=== PATIENT | female | born 1975 | race African-American/Black ===

== ENCOUNTER 2018-10-01 07:19 | Day surgery (SDC) | payer OTHER ==
--- NOTE | 2018-09-30 11:15 | RAD REPORT ---
EXAM DESCRIPTION: RAD - Chest Pa And Lat (2 Views) - 09/30/2018 11:07 am CLINICAL HISTORY: preop Chest pain. COMPARISON: No comparisons FINDINGS: The lungs are clear. The heart is mildly prominent size with sternotomy wires present. Tra ce right pleural fluid. Lateral view is degraded by the presence of the pacer pack. IMPRESSION: No acute or concerning finding suspected.
[2018-09-30 11:19] LABS: Absolute Lymphocytes (CBC) 2.2 K/uL (0.7-4.9); Basophils % 1.5 % (0-1.3); Hematocrit 39.9 % (36.0-45.0); Lymphocytes % 31.5 % (15.3-44.8); MPV 9.4 fL (7.6-11.3); RBC Red Blood Cell Count 4.46 M/uL (3.86-4.86)
[2018-09-30 11:26] LABS: Potassium 4.1 mmol/L (3.5-5.1)
--- NOTE | 2018-09-30 13:48 | EKG ---
Test Date: 2018-09-30 Test Time: 10:42:31 Ink Grinder: YRIS MEASUREMENT RESULTS: Intervals: Rate: 73 DC: 174 QRSD: 84 QT: 416 QTc: 458 Martin: P: 60 DC: 174 QRS: 6 T: 115 INTERPRETIVE STATEMENTS: Normal sinus rhythm Cannot rule out Anterior infarct, age undetermined T wave abnormality, consider lateral ischemia Abnormal ECG No previous ECG available for comparison Electronically Signed On 09-30-18 13:47:11 CDT by Arden Henry
--- OUTSIDE RECORDS SUMMARY | 2018-10-01 07:22 | XMS REPORT | Clinical Summary ---
:1975 Author Organization [facility] Address [address] [place] [address] Care Team Providers Name Role Phone Juju Cardozo MD Primary Care Provider Jose E Martinez Unavailable Allergies No Known Allergies Medications Medication Sig Dispensed Refills Start Date End Date Status insulin pump cartridge Inject 0 Active Crtg subcutaneously. cholecalciferol, Take 50,000 Units 0 Active vitamin D3, 50,000 by mouth once a unit TabIndications: week. vitamin D deficiency insulin aspart 1.7 Units every 0 06/05/2016 Active (NOVOLOG) 100 unit/mL hour Per insulin injection pump. Active Problems Problem Noted Date Smoker 08/04/2016 Hyperlipidemia 08/04/2016 Type 1 diabetes mellitus, uncontrolled 07/26/2016 Ischemic cardiomyopathy 07/26/2016 Chronic combined systolic and diastolic congestive heart failure 07/23/2016 NSTEMI (non-ST elevated myocardial infarction) 07/19/2016 Unspecified vitamin D deficiency 03/31/2016 Social History Tobacco Use Types Packs/Day Years Used Date Former Smoker Cigarettes Quit: 07/03/2016 Smokeless Tobacco: Never Used Alcohol Use Drinks/Week oz/Week Comments Yes occassionally Sex Assigned at Date Recorded Not on file Job Start Date Occupation Industry Not on file Not on file Not on file Travel History Travel Start Travel End No recent travel history available. Last Filed Vital Signs Not on file Plan of Treatment Not on file Implants Implanted Type Area International [employer] Coordinator Device Shelf Model / Identifier Expiration Serial / Date Lot Sternal Zipfix Ndl Strl [id number] - [id number] Cardiovascular N/A: SYNTHES:SYNTHES 05/09/2021 [id number] / Implanted: Qty: 1 on 07/23/2016 by Han Flores [facility] / [id number] Sternal Zipfix Ndl Strl .[id number] - [id number] Cardiovascular N/A: Chest SYNTHES:SYNTHES 05/09/2021501.001.20S / Implanted: Qty: 1 on 07/23/2016 by Han Flores MD [facility] / [id number] Procedures Procedure Name Priority Date/Time Associated Diagnosis Comments REPORT OF PROCEDURE - 10/13/2017 3:22 PM CDT ENDOSCOPY SCAN after 09/30/2017 Results EKG-SCANNED (10/13/2017 3:22 PM CDT) Narrative Performed At after 09/30/2017 Insurance Payer Benefit Plan / Group Subscriber ID Type Phone Address [employer] - [employer] CARE C[employer] HMO/POS/OPEN ACCESS xxxxxxxxxxx HMO/POS Advance Directives For more information, please contact:[address] [phone] Code Status Date Activated Date Inactivated Comments Full Code 07/23/2016 4:55 PM 08/01/2016 1:25 AM This code status was determined by: Patient Full Code 07/22/2016 7:16 PM 07/23/2016 4:55 PM This code status was determined by: Patient Full Code 07/18/2016 11:39 PM 07/22/2016 7:16 PM This code status was determined by: Patient Full Code 07/17/2016 1:22 PM 07/18/2016 11:39 PM This code status was determined by: Patient Full Code 10/04/2014 5:41 PM 10/10/2014 9:42 PM This code status was determined by: Patient
--- OUTSIDE RECORDS SUMMARY | 2018-10-01 07:26 | XMS REPORT ---
:1975 [facility] Address [address] [place] [address] Care Team Providers Name Role Phone EM JASMYNE TRAVIS Unavailable Unavailable ANDIE FLAHERTY Unavailable Unavailable ZACHARIAH DEY Unavailable Unavailable JA RIVAS Unavailable Unavailable Problems This patient has no known problems. Allergies, Adverse Reactions, Alerts This patient has no known allergies or adverse reactions. Medications This patient has no known medications. Results Test Description Test Time Test Comments Text Results Atomic Results Result Comments WOUND CULTURE + GRAM STAIN 2016-08-21 10:38:00 Test Item Value Reference Range Comments CULTURE (BEAKER) (test lkzw=8825) SERRATIA MARCESCENS 4+ Serratia marcescens Amikacin (test code=1) Ampicillin + Sulbactam (test code=6) Aztreonam (test code=32) Cefazolin (test code=9) Cefepime (test code=51) Cefoxitin (test code=68) Ceftazidime (test code=27) Ceftriaxone (test code=52) Ertapenem (test code=38) Gentamicin (test code=18) Levofloxacin (test code=22) Meropenem (test code=34) Nitrofurantoin (test code=23) Piperacillin + Tazobactam (test code=29) Tetracycline (test code=2) Tigecycline (test pati=858) Tobramycin (test code=25) Trimethoprim + Sulfamethoxazole (test code=47) GRAM STAIN RESULT (BEAKER) (test <1+ WBCs toqr=3914) GRAM STAIN RESULT (BEAKER) (test No organisms seen xmel=[id number]) 1+ skin floraB-TYPE NATRIURETIC FACTOR (BNP)2016-08-04 12:56:00 Test Item Value Reference Range Comments B-TYPE NATRIURETIC PEPTIDE (BEAKER) (test 1128 pg/mL 0-100 cyzm=547) [id number] 12:49:00 Test Item Value Reference Range Comments MAGNESIUM (BEAKER) (test mvlc=968) 1.6 mg/dL 1.6-2.6 BASIC METABOLIC [id number] 12:49:00 Test Item Value Reference Range Comments SODIUM (BEAKER) (test 138 meq/L 136-145 mnkm=349) POTASSIUM (BEAKER) (test 3.7 meq/L 3.5-5.1 hrlh=559) CHLORIDE (BEAKER) (test 100 meq/L 98-107 prsu=201) CO2 (BEAKER) (test 26 meq/L 22-29 tfgc=750) BLOOD UREA NITROGEN 18 mg/dL 7-21 (BEAKER) (test ksgl=133) CREATININE (BEAKER) (test 0.99 mg/dL 0.57-1.25 gmii=917) GLUCOSE RANDOM (BEAKER) 65 mg/dL 70-105 (test bayw=293) CALCIUM (BEAKER) (test 10.4 mg/dL 8.4-10.2 wypi=768) EGFR (BEAKER) (test 75 mL/min/1.73 sq m ESTIMATED GFR IS NOT lvvu=9066) ACCURATE CREATININE CLEARANCE IN PREDICTING GLOMERULAR FILTRATION RATE. ESTIMATED GFR IS NOT APPLICABLE FOR DIALYSIS PATIENTS. POCT-GLUCOSE [id number] 12:35:00 Test Item Value Reference Range Comments POC-GLUCOSE METER (BEAKER) 226 mg/dL 70-110 TESTED AT [place] [id number] [facility] (test khrx=6485) [facility] [address] POCT-GLUCOSE [id number] 08:12:00 Test Item Value Reference Range Comments POC-GLUCOSE METER (BEAKER) 180 mg/dL 70-110 TESTED AT [facility] [address] [facility] (test plbm=7569) [facility] [address] CBC W/PLT COUNT & AUTO [id number] 06:58:00 Test Item Value Reference Range Comments WHITE BLOOD CELL COUNT (BEAKER) (test sozp=266) 13.6 K/ L 4.0-10.0 RED BLOOD CELL COUNT (BEAKER) (test vmnk=785) 2.86 M/ L 4.00-5.00 HEMOGLOBIN (BEAKER) (test yqdf=259) 8.4 GM/DL 12.0-15.0 HEMATOCRIT (BEAKER) (test jlgr=606) 25.6 % 36.0-45.0 MEAN CORPUSCULAR VOLUME (BEAKER) (test ados=716) 89.6 fL 82.0-99.0 MEAN CORPUSCULAR HEMOGLOBIN (BEAKER) (test 29.3 pg 27.0-33.0 jnbs=731) MEAN CORPUSCULAR HEMOGLOBIN CONC (BEAKER) (test 32.7 GM/DL 32.0-36.0 zrqv=696) RED CELL DISTRIBUTION WIDTH (BEAKER) (test 14.4 % 10.3-14.2 ngxp=870) PLATELET COUNT (BEAKER) (test obzs=546) 336 K/CU MM 150-430 MEAN PLATELET VOLUME (BEAKER) (test lgqp=765) 7.1 fL 6.5-10.5 NUCLEATED RED BLOOD CELLS (BEAKER) (test 0 /100 WBC 0-0 awqu=568) NEUTROPHILS RELATIVE PERCENT (BEAKER) (test 70 % xjti=929) LYMPHOCYTES RELATIVE PERCENT (BEAKER) (test 17 % hkhq=487) MONOCYTES RELATIVE PERCENT (BEAKER) (test 9 % slzv=478) EOSINOPHILS RELATIVE PERCENT (BEAKER) (test 3 % wubp=017) BASOPHILS RELATIVE PERCENT (BEAKER) (test 1 % pisf=225) NEUTROPHILS ABSOLUTE COUNT (BEAKER) (test 9.51 K/ L 1.80-8.00 cnhi=982) LYMPHOCYTES ABSOLUTE COUNT (BEAKER) (test 2.33 K/ L 1.48-4.50 jvns=105) MONOCYTES ABSOLUTE COUNT (BEAKER) (test 1.21 K/ L 0.00-1.30 xdpr=459) EOSINOPHILS ABSOLUTE COUNT (BEAKER) (test 0.39 K/ L 0.00-0.50 nhmh=404) BASOPHILS ABSOLUTE COUNT (BEAKER) (test 0.11 K/ L 0.00-0.20 covs=283) [id number] 06:11:00 Test Item Value Reference Range Comments MAGNESIUM (BEAKER) (test yvkj=237) 1.7 mg/dL 1.6-2.6 BASIC METABOLIC [id number] 06:11:00 Test Item Value Reference Range Comments SODIUM (BEAKER) (test 135 meq/L 136-145 leel=400) POTASSIUM (BEAKER) (test 4.3 meq/L 3.5-5.1 jglw=321) CHLORIDE (BEAKER) (test 100 meq/L 98-107 uvuh=912) CO2 (BEAKER) (test 26 meq/L 22-29 euoe=384) BLOOD UREA NITROGEN 21 mg/dL 7-21 (BEAKER) (test adao=605) CREATININE (BEAKER) (test 1.05 mg/dL 0.57-1.25 pwoe=218) GLUCOSE RANDOM (BEAKER) 133 mg/dL 70-105 (test dabc=490) CALCIUM (BEAKER) (test 8.8 mg/dL 8.4-10.2 gvgr=118) EGFR (BEAKER) (test 70 mL/min/1.73 sq m ESTIMATED GFR IS NOT xauh=2640) ACCURATE CREATININE CLEARANCE IN PREDICTING GLOMERULAR FILTRATION RATE. ESTIMATED GFR IS NOT APPLICABLE FOR DIALYSIS PATIENTS. POCT-GLUCOSE [id number] 21:04:00 Test Item Value Reference Range Comments POC-GLUCOSE METER (BEAKER) 127 mg/dL 70-110 TESTED AT [address] (test ugvc=0218) [facility] [address] POCT-GLUCOSE [id number] 17:44:00 Test Item Value Reference Range Comments POC-GLUCOSE METER (BEAKER) 186 mg/dL 70-110 TESTED AT [address] (test mijt=6940) [facility] [address] CBC W/PLT COUNT & AUTO [id number] 14:09:00 Test Item Value Reference Range Comments WHITE BLOOD CELL COUNT (BEAKER) (test xqxz=572) 13.0 K/ L 4.0-10.0 RED BLOOD CELL COUNT (BEAKER) (test nhch=834) 2.84 M/ L 4.00-5.00 HEMOGLOBIN (BEAKER) (test jzrp=755) 8.6 GM/DL 12.0-15.0 HEMATOCRIT (BEAKER) (test tczh=541) 25.2 % 36.0-45.0 MEAN CORPUSCULAR VOLUME (BEAKER) (test pici=642) 88.7 fL 82.0-99.0 MEAN CORPUSCULAR HEMOGLOBIN (BEAKER) (test 30.4 pg 27.0-33.0 vsac=768) MEAN CORPUSCULAR HEMOGLOBIN CONC (BEAKER) (test 34.2 GM/DL 32.0-36.0 zpry=015) RED CELL DISTRIBUTION WIDTH (BEAKER) (test 14.3 % 10.3-14.2 iufa=275) PLATELET COUNT (BEAKER) (test clol=277) 318 K/CU MM 150-430 MEAN PLATELET VOLUME (BEAKER) (test bnio=452) 7.0 fL 6.5-10.5 NUCLEATED RED BLOOD CELLS (BEAKER) (test 0 /100 WBC 0-0 edhb=044) NEUTROPHILS RELATIVE PERCENT (BEAKER) (test 67 % ffkw=955) LYMPHOCYTES RELATIVE PERCENT (BEAKER) (test 20 % gvqw=782) MONOCYTES RELATIVE PERCENT (BEAKER) (test 8 % gybf=415) EOSINOPHILS RELATIVE PERCENT (BEAKER) (test 3 % fugg=725) BASOPHILS RELATIVE PERCENT (BEAKER) (test 1 % rdra=246) NEUTROPHILS ABSOLUTE COUNT (BEAKER) (test 8.73 K/ L 1.80-8.00 wblz=530) LYMPHOCYTES ABSOLUTE COUNT (BEAKER) (test 2.60 K/ L 1.48-4.50 dhou=553) MONOCYTES ABSOLUTE COUNT (BEAKER) (test 1.09 K/ L 0.00-1.30 leqt=362) EOSINOPHILS ABSOLUTE COUNT (BEAKER) (test 0.44 K/ L 0.00-0.50 irxt=979) BASOPHILS ABSOLUTE COUNT (BEAKER) (test 0.11 K/ L 0.00-0.20 boiw=481) 0.00POCT-GLUCOSE [id number] 08:16:00 Test Item Value Reference Range Comments POC-GLUCOSE METER (BEAKER) 123 mg/dL 70-110 TESTED AT [facility] [address] [facility] (test wuee=0474) [facility] [address] CBC W/PLT COUNT & AUTO [id number] 06:57:00 Test Item Value Reference Range Comments WHITE BLOOD CELL COUNT (BEAKER) (test qrgh=839) 13.0 K/ L 4.0-10.0 RED BLOOD CELL COUNT (BEAKER) (test nlvp=700) 2.65 M/ L 4.00-5.00 HEMOGLOBIN (BEAKER) (test joll=246) 7.8 GM/DL 12.0-15.0 HEMATOCRIT (BEAKER) (test ybef=674) 23.7 % 36.0-45.0 MEAN CORPUSCULAR VOLUME (BEAKER) (test kske=147) 89.4 fL 82.0-99.0 MEAN CORPUSCULAR HEMOGLOBIN (BEAKER) (test 29.2 pg 27.0-33.0 xmjr=004) MEAN CORPUSCULAR HEMOGLOBIN CONC (BEAKER) (test 32.7 GM/DL 32.0-36.0 ynzg=606) RED CELL DISTRIBUTION WIDTH (BEAKER) (test 15.8 % 10.3-14.2 fdfc=121) PLATELET COUNT (BEAKER) (test hubg=739) 281 K/CU MM 150-430 MEAN PLATELET VOLUME (BEAKER) (test whkx=289) 7.3 fL 6.5-10.5 NUCLEATED RED BLOOD CELLS (BEAKER) (test 0 /100 WBC 0-0 cppk=805) NEUTROPHILS RELATIVE PERCENT (BEAKER) (test 63 % dohs=458) LYMPHOCYTES RELATIVE PERCENT (BEAKER) (test 23 % yidn=029) MONOCYTES RELATIVE PERCENT (BEAKER) (test 9 % nqbg=050) EOSINOPHILS RELATIVE PERCENT (BEAKER) (test 4 % chot=693) BASOPHILS RELATIVE PERCENT (BEAKER) (test 1 % ponj=336) NEUTROPHILS ABSOLUTE COUNT (BEAKER) (test 8.20 K/ L 1.80-8.00 yzzm=407) LYMPHOCYTES ABSOLUTE COUNT (BEAKER) (test 2.97 K/ L 1.48-4.50 wind=956) MONOCYTES ABSOLUTE COUNT (BEAKER) (test 1.19 K/ L 0.00-1.30 dlde=934) EOSINOPHILS ABSOLUTE COUNT (BEAKER) (test 0.56 K/ L 0.00-0.50 cbmh=846) BASOPHILS ABSOLUTE COUNT (BEAKER) (test 0.11 K/ L 0.00-0.20 clit=740) [id number] 06:18:00 Test Item Value Reference Range Comments MAGNESIUM (BEAKER) (test qisa=543) 1.9 mg/dL 1.6-2.6 BASIC METABOLIC [id number] 06:18:00 Test Item Value Reference Range Comments SODIUM (BEAKER) (test 135 meq/L 136-145 jnzf=371) POTASSIUM (BEAKER) (test 4.0 meq/L 3.5-5.1 rrno=066) CHLORIDE (BEAKER) (test 102 meq/L 98-107 ionr=303) CO2 (BEAKER) (test 27 meq/L 22-29 fnvo=124) BLOOD UREA NITROGEN 23 mg/dL 7-21 (BEAKER) (test ymxp=512) CREATININE (BEAKER) (test 0.97 mg/dL 0.57-1.25 kgev=978) GLUCOSE RANDOM (BEAKER) 132 mg/dL 70-105 (test mjdk=109) CALCIUM (BEAKER) (test 8.5 mg/dL 8.4-10.2 shjh=192) EGFR (BEAKER) (test 76 mL/min/1.73 sq m ESTIMATED GFR IS NOT wxkd=1142) ACCURATE CREATININE CLEARANCE IN PREDICTING GLOMERULAR FILTRATION RATE. ESTIMATED GFR IS NOT APPLICABLE FOR DIALYSIS PATIENTS. POCT-GLUCOSE [id number] 21:29:00 Test Item Value Reference Range Comments POC-GLUCOSE METER (BEAKER) 169 mg/dL 70-110 TESTED AT [address] (test cuzw=5848) [place] [address] POCT-GLUCOSE [id number] 17:10:00 Test Item Value Reference Range Comments POC-GLUCOSE METER (BEAKER) 136 mg/dL 70-110 TESTED AT [address] (test kypz=9535) [place] [address] POCT-GLUCOSE [id number] 12:48:00 Test Item Value Reference Range Comments POC-GLUCOSE METER (BEAKER) 164 mg/dL 70-110 TESTED AT [address] (test bkty=2029) [place] [address] TISSUE [id number] 12:20:00Surgical Pathology Report Case: [id number] Authorizing Provider: Jasmyne Flores MD Collected: 07/23/2016 0937 Ordering Location: [facility] Received: 07/23/2016 1503 PERIOPERATIVE SERVICES Pathologist: Isa Arroyo MD Specimen: Plaque, LAD plaque CORONARY ARTERY, LEFT ANTERIOR DESCENDING, ENDARTERECTOMY: - COMPATIBLE WITH CALCIFIC ATHEROSCLEROTIC PLAQUE [id number], [id number] plaqueIn saline labeled"plaque", description "LAD plaque" is a 2.2 cm in length x 0.2 cm in diameter grover-white to yellow-zamorano cylindrical portion of calcified fibrous tissue. The specimen is entirely submitted in cassette A1for decalcification. DB/plPerformed.POCT-GLUCOSE [id number] 08:27:00 Test Item Value Reference Range Comments POC-GLUCOSE METER (BEAKER) 76 mg/dL 70-110 TESTED AT [facility] [address] [facility] (test ejre=7856) [facility] [address] [id number] 05:57:00 Test Item Value Reference Range Comments MAGNESIUM (BEAKER) (test dxmq=610) 2.0 mg/dL 1.6-2.6 BASIC METABOLIC [id number] 05:57:00 Test Item Value Reference Range Comments SODIUM (BEAKER) (test 135 meq/L 136-145 llhn=241) POTASSIUM (BEAKER) (test 3.8 meq/L 3.5-5.1 yckn=173) CHLORIDE (BEAKER) (test 101 meq/L 98-107 digh=480) CO2 (BEAKER) (test 27 meq/L 22-29 jjsm=072) BLOOD UREA NITROGEN 24 mg/dL 7-21 (BEAKER) (test besx=352) CREATININE (BEAKER) (test 0.94 mg/dL 0.57-1.25 yenz=514) GLUCOSE RANDOM (BEAKER) 88 mg/dL 70-105 (test xlzw=897) CALCIUM (BEAKER) (test 8.4 mg/dL 8.4-10.2 dwyk=240) EGFR (BEAKER) (test 79 mL/min/1.73 sq m ESTIMATED GFR IS NOT ffkg=0361) ACCURATE CREATININE CLEARANCE IN PREDICTING GLOMERULAR FILTRATION RATE. ESTIMATED GFR IS NOT APPLICABLE FOR DIALYSIS PATIENTS. CBC W/PLT COUNT & AUTO [id number] 05:46:00 Test Item Value Reference Range Comments WHITE BLOOD CELL COUNT (BEAKER) (test eyxv=150) 13.1 K/ L 4.0-10.0 RED BLOOD CELL COUNT (BEAKER) (test xroq=018) 2.61 M/ L 4.00-5.00 HEMOGLOBIN (BEAKER) (test tpez=904) 7.8 GM/DL 12.0-15.0 HEMATOCRIT (BEAKER) (test yjcs=800) 23.4 % 36.0-45.0 MEAN CORPUSCULAR VOLUME (BEAKER) (test lovq=645) 89.4 fL 82.0-99.0 MEAN CORPUSCULAR HEMOGLOBIN (BEAKER) (test 29.8 pg 27.0-33.0 fyfq=940) MEAN CORPUSCULAR HEMOGLOBIN CONC (BEAKER) (test 33.4 GM/DL 32.0-36.0 vsff=037) RED CELL DISTRIBUTION WIDTH (BEAKER) (test 14.2 % 10.3-14.2 hklv=945) PLATELET COUNT (BEAKER) (test egsn=556) 248 K/CU MM 150-430 MEAN PLATELET VOLUME (BEAKER) (test hjbd=533) 7.3 fL 6.5-10.5 NUCLEATED RED BLOOD CELLS (BEAKER) (test 0 /100 WBC 0-0 pqpd=932) NEUTROPHILS RELATIVE PERCENT (BEAKER) (test 59 % knwb=710) LYMPHOCYTES RELATIVE PERCENT (BEAKER) (test 25 % jomu=402) MONOCYTES RELATIVE PERCENT (BEAKER) (test 10 % egme=355) EOSINOPHILS RELATIVE PERCENT (BEAKER) (test 5 % czyb=490) BASOPHILS RELATIVE PERCENT (BEAKER) (test 0 % npzc=849) NEUTROPHILS ABSOLUTE COUNT (BEAKER) (test 7.77 K/ L 1.80-8.00 qiwb=433) LYMPHOCYTES ABSOLUTE COUNT (BEAKER) (test 3.30 K/ L 1.48-4.50 jiiw=414) MONOCYTES ABSOLUTE COUNT (BEAKER) (test 1.37 K/ L 0.00-1.30 mqag=707) EOSINOPHILS ABSOLUTE COUNT (BEAKER) (test 0.69 K/ L 0.00-0.50 kbvd=794) BASOPHILS ABSOLUTE COUNT (BEAKER) (test 0.02 K/ L 0.00-0.20 ispi=275) 0.00POCT-GLUCOSE [id number] 21:03:00 Test Item Value Reference Range Comments POC-GLUCOSE METER (BEAKER) 234 mg/dL 70-110 TESTED AT [address] (test kbwe=1725) [facility] [address] POCT-GLUCOSE [id number] 17:26:00 Test Item Value Reference Range Comments POC-GLUCOSE METER (BEAKER) 242 mg/dL 70-110 TESTED AT [address] (test awje=6702) [facility] [address] POCT-GLUCOSE [id number] 12:49:00 Test Item Value Reference Range Comments POC-GLUCOSE METER (BEAKER) 221 mg/dL 70-110 TESTED AT [address] (test kwkk=1500) [facility] [address] HEMOGLOBIN AND [id number] 08:41:00 Test Item Value Reference Range Comments HEMOGLOBIN (BEAKER) (test jkgr=622) 9.1 GM/DL 12.0-15.0 HEMATOCRIT (BEAKER) (test nwnn=902) 27.4 % 36.0-45.0 POCT-GLUCOSE [id number] 08:40:00 Test Item Value Reference Range Comments POC-GLUCOSE METER (BEAKER) 85 mg/dL 70-110 TESTED AT [address] (test wkpk=9506) [facility] [address] POCT-GLUCOSE [id number] 07:19:00 Test Item Value Reference Range Comments POC-GLUCOSE METER (BEAKER) 177 mg/dL 70-110 TESTED AT [address] (test icwy=7564) [facility] [address] POCT-GLUCOSE [id number] 07:19:00 Test Item Value Reference Range Comments POC-GLUCOSE METER (BEAKER) 197 mg/dL 70-110 TESTED AT [address] (test nwcp=5958) [facility] [address] POCT-GLUCOSE [id number] 07:19:00 Test Item Value Reference Range Comments POC-GLUCOSE METER (BEAKER) 159 mg/dL 70-110 TESTED AT [address] (test duey=1993) [facility] [address] POCT-GLUCOSE [id number] 07:19:00 Test Item Value Reference Range Comments POC-GLUCOSE METER (BEAKER) 152 mg/dL 70-110 TESTED AT [address] (test adlu=3692) [facility] [address] POCT-GLUCOSE [id number] 07:19:00 Test Item Value Reference Range Comments POC-GLUCOSE METER (BEAKER) 155 mg/dL 70-110 TESTED AT [address] (test fjvd=0752) [facility] [address] POCT-GLUCOSE [id number] 07:19:00 Test Item Value Reference Range Comments POC-GLUCOSE METER (BEAKER) 113 mg/dL 70-110 TESTED AT [address] (test aexo=4787) [facility] [address] POCT-GLUCOSE [id number] 07:19:00 Test Item Value Reference Range Comments POC-GLUCOSE METER (BEAKER) 89 mg/dL 70-110 TESTED AT [address] (test opro=6221) [facility] [address] POCT-GLUCOSE [id number] 07:19:00 Test Item Value Reference Range Comments POC-GLUCOSE METER (BEAKER) 108 mg/dL 70-110 TESTED AT [address] (test eclw=4729) [facility] [address] POCT-GLUCOSE [id number] 07:19:00 Test Item Value Reference Range Comments POC-GLUCOSE METER (BEAKER) 114 mg/dL 70-110 TESTED AT [address] (test ncfb=3978) [facility] [address] CBC W/PLT COUNT & AUTO [id number] 06:23:00 Test Item Value Reference Range Comments WHITE BLOOD CELL COUNT (BEAKER) (test zkan=547) 11.0 K/ L 4.0-10.0 RED BLOOD CELL COUNT (BEAKER) (test bkwg=706) 2.22 M/ L 4.00-5.00 HEMOGLOBIN (BEAKER) (test lpoc=131) 6.7 GM/DL 12.0-15.0 HEMATOCRIT (BEAKER) (test asrx=532) 19.8 % 36.0-45.0 MEAN CORPUSCULAR VOLUME (BEAKER) (test tufl=429) 89.4 fL 82.0-99.0 MEAN CORPUSCULAR HEMOGLOBIN (BEAKER) (test 30.3 pg 27.0-33.0 boki=357) MEAN CORPUSCULAR HEMOGLOBIN CONC (BEAKER) (test 33.9 GM/DL 32.0-36.0 brpj=080) RED CELL DISTRIBUTION WIDTH (BEAKER) (test 14.0 % 10.3-14.2 twof=815) PLATELET COUNT (BEAKER) (test htdd=812) 179 K/CU MM 150-430 MEAN PLATELET VOLUME (BEAKER) (test yulh=643) 7.4 fL 6.5-10.5 NUCLEATED RED BLOOD CELLS (BEAKER) (test 0 /100 WBC 0-0 vesj=988) NEUTROPHILS RELATIVE PERCENT (BEAKER) (test 61 % yjuu=967) LYMPHOCYTES RELATIVE PERCENT (BEAKER) (test 22 % iafp=505) MONOCYTES RELATIVE PERCENT (BEAKER) (test 12 % vfee=631) EOSINOPHILS RELATIVE PERCENT (BEAKER) (test 5 % mqxz=956) BASOPHILS RELATIVE PERCENT (BEAKER) (test 0 % hnyk=299) NEUTROPHILS ABSOLUTE COUNT (BEAKER) (test 6.69 K/ L 1.80-8.00 ydrx=262) LYMPHOCYTES ABSOLUTE COUNT (BEAKER) (test 2.36 K/ L 1.48-4.50 mmnw=054) MONOCYTES ABSOLUTE COUNT (BEAKER) (test 1.33 K/ L 0.00-1.30 fiwd=457) EOSINOPHILS ABSOLUTE COUNT (BEAKER) (test 0.59 K/ L 0.00-0.50 oaew=991) BASOPHILS ABSOLUTE COUNT (BEAKER) (test 0.02 K/ L 0.00-0.20 bbop=706) [id number] 06:02:00 Test Item Value Reference Range Comments PHOSPHORUS (BEAKER) (test ybpj=574) 3.0 mg/dL 2.3-4.7 [id number] 06:02:00 Test Item Value Reference Range Comments MAGNESIUM (BEAKER) (test untz=805) 2.0 mg/dL 1.6-2.6 BASIC METABOLIC [id number] 06:02:00 Test Item Value Reference Range Comments SODIUM (BEAKER) (test 135 meq/L 136-145 mrff=794) POTASSIUM (BEAKER) (test 3.8 meq/L 3.5-5.1 fvrv=999) CHLORIDE (BEAKER) (test 101 meq/L 98-107 wezt=082) CO2 (BEAKER) (test 27 meq/L 22-29 ftmi=840) BLOOD UREA NITROGEN 24 mg/dL 7-21 (BEAKER) (test zjhn=137) CREATININE (BEAKER) (test 0.82 mg/dL 0.57-1.25 fywo=228) GLUCOSE RANDOM (BEAKER) 94 mg/dL 70-105 (test wvub=390) CALCIUM (BEAKER) (test 8.7 mg/dL 8.4-10.2 gfuc=518) EGFR (BEAKER) (test 93 mL/min/1.73 sq m ESTIMATED GFR IS NOT yebx=6026) ACCURATE CREATININE CLEARANCE IN PREDICTING GLOMERULAR FILTRATION RATE. ESTIMATED GFR IS NOT APPLICABLE FOR DIALYSIS PATIENTS. POCT-GLUCOSE [id number] 20:57:00 Test Item Value Reference Range Comments POC-GLUCOSE METER (BEAKER) 233 mg/dL 70-110 TESTED AT [address] (test boex=9053) [place] [address] POCT-GLUCOSE [id number] 16:28:00 Test Item Value Reference Range Comments POC-GLUCOSE METER (BEAKER) 235 mg/dL 70-110 TESTED AT [address] (test gllp=0382) [place] [address] POCT-GLUCOSE [id number] 11:38:00 Test Item Value Reference Range Comments POC-GLUCOSE METER (BEAKER) 230 mg/dL 70-110 TESTED AT [address] (test fxej=0942) [place] [address] B-TYPE NATRIURETIC FACTOR (BNP)2016-07-27 09:55:00 Test Item Value Reference Range Comments B-TYPE NATRIURETIC PEPTIDE (BEAKER) (test 1121 pg/mL 0-100 srcy=890) POCT-GLUCOSE [id number] 08:00:00 Test Item Value Reference Range Comments POC-GLUCOSE METER (BEAKER) 89 mg/dL 70-110 TESTED AT [address] (test ysws=9709) [place] [address] [id number] 05:08:00 Test Item Value Reference Range Comments PHOSPHORUS (BEAKER) (test xtga=496) 3.6 mg/dL 2.3-4.7 [id number] 05:08:00 Test Item Value Reference Range Comments MAGNESIUM (BEAKER) (test hdsn=934) 1.9 mg/dL 1.6-2.6 BASIC METABOLIC [id number] 05:08:00 Test Item Value Reference Range Comments SODIUM (BEAKER) (test 137 meq/L 136-145 ajuy=126) POTASSIUM (BEAKER) (test 3.5 meq/L 3.5-5.1 htmg=258) CHLORIDE (BEAKER) (test 100 meq/L 98-107 tpbd=678) CO2 (BEAKER) (test 25 meq/L 22-29 iagh=542) BLOOD UREA NITROGEN 29 mg/dL 7-21 (BEAKER) (test dqhb=721) CREATININE (BEAKER) (test 0.85 mg/dL 0.57-1.25 mfwn=977) GLUCOSE RANDOM (BEAKER) 66 mg/dL 70-105 (test qjfm=407) CALCIUM (BEAKER) (test 9.7 mg/dL 8.4-10.2 yrie=752) EGFR (BEAKER) (test 89 mL/min/1.73 sq m ESTIMATED GFR IS NOT tomt=7092) ACCURATE CREATININE CLEARANCE IN PREDICTING GLOMERULAR FILTRATION RATE. ESTIMATED GFR IS NOT APPLICABLE FOR DIALYSIS PATIENTS. CBC W/PLT COUNT & AUTO [id number] 05:02:00 Test Item Value Reference Range Comments WHITE BLOOD CELL COUNT (BEAKER) (test tqdr=596) 15.4 K/ L 4.0-10.0 RED BLOOD CELL COUNT (BEAKER) (test laxd=992) 2.81 M/ L 4.00-5.00 HEMOGLOBIN (BEAKER) (test cmpe=002) 8.0 GM/DL 12.0-15.0 HEMATOCRIT (BEAKER) (test caqc=420) 24.8 % 36.0-45.0 MEAN CORPUSCULAR VOLUME (BEAKER) (test nvub=096) 88.0 fL 82.0-99.0 MEAN CORPUSCULAR HEMOGLOBIN (BEAKER) (test 28.5 pg 27.0-33.0 boef=389) MEAN CORPUSCULAR HEMOGLOBIN CONC (BEAKER) (test 32.4 GM/DL 32.0-36.0 kcui=229) RED CELL DISTRIBUTION WIDTH (BEAKER) (test 15.5 % 10.3-14.2 pnrg=792) PLATELET COUNT (BEAKER) (test tfah=617) 219 K/CU MM 150-430 MEAN PLATELET VOLUME (BEAKER) (test sohy=693) 7.7 fL 6.5-10.5 NUCLEATED RED BLOOD CELLS (BEAKER) (test 0 /100 WBC 0-0 sqez=871) NEUTROPHILS RELATIVE PERCENT (BEAKER) (test 63 % smyl=981) LYMPHOCYTES RELATIVE PERCENT (BEAKER) (test 20 % dftj=046) MONOCYTES RELATIVE PERCENT (BEAKER) (test 12 % fqfo=717) EOSINOPHILS RELATIVE PERCENT (BEAKER) (test 5 % sbpz=116) BASOPHILS RELATIVE PERCENT (BEAKER) (test 1 % gmeq=313) NEUTROPHILS ABSOLUTE COUNT (BEAKER) (test 9.67 K/ L 1.80-8.00 ygms=690) LYMPHOCYTES ABSOLUTE COUNT (BEAKER) (test 3.08 K/ L 1.48-4.50 adyj=176) MONOCYTES ABSOLUTE COUNT (BEAKER) (test 1.81 K/ L 0.00-1.30 ucaj=320) EOSINOPHILS ABSOLUTE COUNT (BEAKER) (test 0.75 K/ L 0.00-0.50 ntrv=419) BASOPHILS ABSOLUTE COUNT (BEAKER) (test 0.09 K/ L 0.00-0.20 bjzz=530) 0.00POCT-GLUCOSE [id number] 22:28:00 Test Item Value Reference Range Comments POC-GLUCOSE METER (BEAKER) 130 mg/dL 70-110 TESTED AT [address] (test voud=4374) [place] [id number] POCT-GLUCOSE [id number] 18:05:00 Test Item Value Reference Range Comments POC-GLUCOSE METER (BEAKER) 178 mg/dL 70-110 TESTED AT [address] (test qivx=0606) [place] [address] POCT-GLUCOSE [id number] 12:11:00 Test Item Value Reference Range Comments POC-GLUCOSE METER (BEAKER) 212 mg/dL 70-110 TESTED AT [address] (test vxfp=4323) [place] [address] POCT-GLUCOSE [id number] 07:50:00 Test Item Value Reference Range Comments POC-GLUCOSE METER (BEAKER) 181 mg/dL 70-110 TESTED AT [address] (test fqog=6478) [place] [address] [id number] 04:39:00 Test Item Value Reference Range Comments PHOSPHORUS (BEAKER) (test baub=494) 3.5 mg/dL 2.3-4.7 [id number] 04:39:00 Test Item Value Reference Range Comments MAGNESIUM (BEAKER) (test arad=767) 1.9 mg/dL 1.6-2.6 BASIC METABOLIC [id number] 04:39:00 Test Item Value Reference Range Comments SODIUM (BEAKER) (test 135 meq/L 136-145 ttqw=577) POTASSIUM (BEAKER) (test 4.2 meq/L 3.5-5.1 fwrw=809) CHLORIDE (BEAKER) (test 100 meq/L 98-107 hpdo=949) CO2 (BEAKER) (test 26 meq/L 22-29 xjjp=935) BLOOD UREA NITROGEN 31 mg/dL 7-21 (BEAKER) (test mjrz=374) CREATININE (BEAKER) (test 0.97 mg/dL 0.57-1.25 pjei=344) GLUCOSE RANDOM (BEAKER) 197 mg/dL 70-105 (test bksc=131) CALCIUM (BEAKER) (test 9.4 mg/dL 8.4-10.2 rinl=176) EGFR (BEAKER) (test 76 mL/min/1.73 sq m ESTIMATED GFR IS NOT gxhr=8809) ACCURATE CREATININE CLEARANCE IN PREDICTING GLOMERULAR FILTRATION RATE. ESTIMATED GFR IS NOT APPLICABLE FOR DIALYSIS PATIENTS. CBC W/PLT COUNT & AUTO [id number] 04:35:00 Test Item Value Reference Range Comments WHITE BLOOD CELL COUNT (BEAKER) (test tmyq=819) 16.0 K/ L 4.0-10.0 RED BLOOD CELL COUNT (BEAKER) (test vbyd=589) 2.60 M/ L 4.00-5.00 HEMOGLOBIN (BEAKER) (test cust=966) 7.7 GM/DL 12.0-15.0 HEMATOCRIT (BEAKER) (test wern=783) 23.0 % 36.0-45.0 MEAN CORPUSCULAR VOLUME (BEAKER) (test euop=275) 88.2 fL 82.0-99.0 MEAN CORPUSCULAR HEMOGLOBIN (BEAKER) (test 29.6 pg 27.0-33.0 uyyg=714) MEAN CORPUSCULAR HEMOGLOBIN CONC (BEAKER) (test 33.5 GM/DL 32.0-36.0 ijvn=854) RED CELL DISTRIBUTION WIDTH (BEAKER) (test 14.1 % 10.3-14.2 lopx=315) PLATELET COUNT (BEAKER) (test udsj=573) 165 K/CU MM 150-430 MEAN PLATELET VOLUME (BEAKER) (test ekkk=104) 7.5 fL 6.5-10.5 NUCLEATED RED BLOOD CELLS (BEAKER) (test 0 /100 WBC 0-0 gliw=163) NEUTROPHILS RELATIVE PERCENT (BEAKER) (test 74 % wxmi=211) LYMPHOCYTES RELATIVE PERCENT (BEAKER) (test 13 % hpnj=319) MONOCYTES RELATIVE PERCENT (BEAKER) (test 10 % ebbk=624) EOSINOPHILS RELATIVE PERCENT (BEAKER) (test 3 % djmn=935) BASOPHILS RELATIVE PERCENT (BEAKER) (test 0 % msvb=401) NEUTROPHILS ABSOLUTE COUNT (BEAKER) (test 11.80 K/ L 1.80-8.00 oxod=206) LYMPHOCYTES ABSOLUTE COUNT (BEAKER) (test 2.00 K/ L 1.48-4.50 vmys=671) MONOCYTES ABSOLUTE COUNT (BEAKER) (test 1.64 K/ L 0.00-1.30 omra=047) EOSINOPHILS ABSOLUTE COUNT (BEAKER) (test 0.56 K/ L 0.00-0.50 lzbk=076) BASOPHILS ABSOLUTE COUNT (BEAKER) (test 0.00 K/ L 0.00-0.20 gedp=542) 0.00POCT-GLUCOSE [id number] 22:10:00 Test Item Value Reference Range Comments POC-GLUCOSE METER (BEAKER) 243 mg/dL 70-110 TESTED AT [address] (test ghss=4218) [place] [id number] POCT-GLUCOSE [id number] 17:35:00 Test Item Value Reference Range Comments POC-GLUCOSE METER (BEAKER) 263 mg/dL 70-110 TESTED AT [address] (test lxdk=8056) [facility] [address] POCT-GLUCOSE [id number] 12:49:00 Test Item Value Reference Range Comments POC-GLUCOSE METER (BEAKER) 288 mg/dL 70-110 TESTED AT [address] (test ltzc=3236) [facility] [address] POCT-GLUCOSE [id number] 07:24:00 Test Item Value Reference Range Comments POC-GLUCOSE METER (BEAKER) 292 mg/dL 70-110 TESTED AT [address] (test bcrk=5388) [facility] [address] OXYGEN SATURATION, [id number] 06:58:00 Test Item Value Reference Range Comments O2 SATURATION (MEASURED) (BEAKER) (test dtuo=6593) 60.8 % [id number] 03:38:00 Test Item Value Reference Range Comments PHOSPHORUS (BEAKER) (test lheg=538) 4.9 mg/dL 2.3-4.7 [id number] 03:38:00 Test Item Value Reference Range Comments MAGNESIUM (BEAKER) (test pqsm=646) 1.8 mg/dL 1.6-2.6 BASIC METABOLIC [id number] 03:38:00 Test Item Value Reference Range Comments SODIUM (BEAKER) (test 137 meq/L 136-145 ejsf=542) POTASSIUM (BEAKER) (test 4.6 meq/L 3.5-5.1 kqsm=845) CHLORIDE (BEAKER) (test 103 meq/L 98-107 rsky=209) CO2 (BEAKER) (test 24 meq/L 22-29 dzzn=909) BLOOD UREA NITROGEN 25 mg/dL 7-21 (BEAKER) (test hiid=156) CREATININE (BEAKER) (test 1.08 mg/dL 0.57-1.25 tano=997) GLUCOSE RANDOM (BEAKER) 263 mg/dL 70-105 (test pftv=560) CALCIUM (BEAKER) (test 9.9 mg/dL 8.4-10.2 xlub=555) EGFR (BEAKER) (test 67 mL/min/1.73 sq m ESTIMATED GFR IS NOT qqkq=1544) ACCURATE CREATININE CLEARANCE IN PREDICTING GLOMERULAR FILTRATION RATE. ESTIMATED GFR IS NOT APPLICABLE FOR DIALYSIS PATIENTS. CBC W/PLT COUNT & AUTO [id number] 03:26:00 Test Item Value Reference Range Comments WHITE BLOOD CELL COUNT (BEAKER) (test ldvj=662) 14.2 K/ L 4.0-10.0 RED BLOOD CELL COUNT (BEAKER) (test gvlq=418) 2.63 M/ L 4.00-5.00 HEMOGLOBIN (BEAKER) (test wbki=796) 7.7 GM/DL 12.0-15.0 HEMATOCRIT (BEAKER) (test xtxg=645) 22.5 % 36.0-45.0 MEAN CORPUSCULAR VOLUME (BEAKER) (test wico=459) 85.5 fL 82.0-99.0 MEAN CORPUSCULAR HEMOGLOBIN (BEAKER) (test 29.1 pg 27.0-33.0 szok=018) MEAN CORPUSCULAR HEMOGLOBIN CONC (BEAKER) (test 34.1 GM/DL 32.0-36.0 qsti=167) RED CELL DISTRIBUTION WIDTH (BEAKER) (test 16.1 % 10.3-14.2 kkgz=210) PLATELET COUNT (BEAKER) (test jpyp=702) 146 K/CU MM 150-430 MEAN PLATELET VOLUME (BEAKER) (test hspx=054) 7.7 fL 6.5-10.5 NUCLEATED RED BLOOD CELLS (BEAKER) (test 0 /100 WBC 0-0 jbpf=305) NEUTROPHILS RELATIVE PERCENT (BEAKER) (test 76 % wysw=326) LYMPHOCYTES RELATIVE PERCENT (BEAKER) (test 9 % kkse=941) MONOCYTES RELATIVE PERCENT (BEAKER) (test 12 % kkkl=099) EOSINOPHILS RELATIVE PERCENT (BEAKER) (test 3 % goyp=722) BASOPHILS RELATIVE PERCENT (BEAKER) (test 0 % bfgh=006) NEUTROPHILS ABSOLUTE COUNT (BEAKER) (test 10.90 K/ L 1.80-8.00 lqlm=154) LYMPHOCYTES ABSOLUTE COUNT (BEAKER) (test 1.24 K/ L 1.48-4.50 tkrx=181) MONOCYTES ABSOLUTE COUNT (BEAKER) (test 1.73 K/ L 0.00-1.30 umuu=649) EOSINOPHILS ABSOLUTE COUNT (BEAKER) (test 0.36 K/ L 0.00-0.50 gamt=364) BASOPHILS ABSOLUTE COUNT (BEAKER) (test 0.02 K/ L 0.00-0.20 xteq=142) 0.00POCT-GLUCOSE [id number] 22:33:00 Test Item Value Reference Range Comments POC-GLUCOSE METER (BEAKER) 257 mg/dL 70-110 TESTED AT [address] (test acbb=8375) [facility] [address] HEMOGLOBIN AND [id number] 15:46:00 Test Item Value Reference Range Comments HEMOGLOBIN (BEAKER) (test mpft=153) 7.8 GM/DL 12.0-15.0 HEMATOCRIT (BEAKER) (test nmbp=567) 22.2 % 36.0-45.0 OXYGEN SATURATION, [id number] 09:53:00 Test Item Value Reference Range Comments O2 SATURATION (MEASURED) (BEAKER) (test kkrq=3505) 59.3 % BLOOD GAS, [id number] 05:46:00 Test Item Value Reference Range Comments PH ARTERIAL (BEAKER) (test bpsr=344) 7.48 7.35-7.45 PCO2 ARTERIAL (BEAKER) (test zyxf=582) 40 mmHg 35-45 PO2 ARTERIAL (BEAKER) (test rwgb=370) 100 mmHg 80-90 O2 SATURATION ARTERIAL (BEAKER) (test lpzf=957) 97.7 % 96.0-97.0 HCO3 ARTERIAL (BEAKER) (test igio=171) 29 mmol/L 21-29 BASE EXCESS ARTERIAL (BEAKER) (test ezxo=837) 5.1 mmol/L -2.0-3.0 PATIENT TEMPERATURE (BEAKER) (test ialz=8464) 37.9 C FIO2 (BEAKER) (test siya=5598) 36.0 % Post extubation ABGOXYGEN SATURATION, [id number] 04:10:00 Test Item Value Reference Range Comments O2 SATURATION (MEASURED) (BEAKER) (test tngb=2924) 58.6 % [id number] 04:07:00 Test Item Value Reference Range Comments PHOSPHORUS (BEAKER) (test rjrf=120) 3.9 mg/dL 2.3-4.7 [id number] 04:07:00 Test Item Value Reference Range Comments MAGNESIUM (BEAKER) (test tasd=790) 2.3 mg/dL 1.6-2.6 BASIC METABOLIC [id number] 04:07:00 Test Item Value Reference Range Comments SODIUM (BEAKER) (test 140 meq/L 136-145 baub=269) POTASSIUM (BEAKER) (test 4.4 meq/L 3.5-5.1 tqng=477) CHLORIDE (BEAKER) (test 107 meq/L 98-107 jeei=433) CO2 (BEAKER) (test 26 meq/L 22-29 bjyr=577) BLOOD UREA NITROGEN 23 mg/dL 7-21 (BEAKER) (test devj=675) CREATININE (BEAKER) (test 1.15 mg/dL 0.57-1.25 zjdn=406) GLUCOSE RANDOM (BEAKER) 106 mg/dL 70-105 (test szqx=052) CALCIUM (BEAKER) (test 10.2 mg/dL 8.4-10.2 ospu=139) EGFR (BEAKER) (test 63 mL/min/1.73 sq m ESTIMATED GFR IS NOT vcie=5317) ACCURATE CREATININE CLEARANCE IN PREDICTING GLOMERULAR FILTRATION RATE. ESTIMATED GFR IS NOT APPLICABLE FOR DIALYSIS PATIENTS. Specimen slightly ictericCBC W/PLT COUNT & AUTO [id number] 03:47 :00 Test Item Value Reference Range Comments WHITE BLOOD CELL COUNT (BEAKER) (test evwn=594) 9.1 K/ L 4.0-10.0 RED BLOOD CELL COUNT (BEAKER) (test rkum=360) 2.62 M/ L 4.00-5.00 HEMOGLOBIN (BEAKER) (test loem=830) 7.6 GM/DL 12.0-15.0 HEMATOCRIT (BEAKER) (test bhwe=730) 21.8 % 36.0-45.0 MEAN CORPUSCULAR VOLUME (BEAKER) (test pyom=412) 83.1 fL 82.0-99.0 MEAN CORPUSCULAR HEMOGLOBIN (BEAKER) (test 29.0 pg 27.0-33.0 tcze=460) MEAN CORPUSCULAR HEMOGLOBIN CONC (BEAKER) (test 34.9 GM/DL 32.0-36.0 bjlj=739) RED CELL DISTRIBUTION WIDTH (BEAKER) (test 15.3 % 10.3-14.2 hhdw=829) PLATELET COUNT (BEAKER) (test ksrg=984) 165 K/CU MM 150-430 MEAN PLATELET VOLUME (BEAKER) (test uzoh=791) 7.1 fL 6.5-10.5 NUCLEATED RED BLOOD CELLS (BEAKER) (test 0 /100 WBC 0-0 ouib=015) NEUTROPHILS RELATIVE PERCENT (BEAKER) (test 78 % xngj=274) LYMPHOCYTES RELATIVE PERCENT (BEAKER) (test 4 % mfwe=743) MONOCYTES RELATIVE PERCENT (BEAKER) (test 14 % ysdv=536) EOSINOPHILS RELATIVE PERCENT (BEAKER) (test 3 % uzir=610) BASOPHILS RELATIVE PERCENT (BEAKER) (test 0 % oxjj=503) NEUTROPHILS ABSOLUTE COUNT (BEAKER) (test 7.11 K/ L 1.80-8.00 rujt=690) LYMPHOCYTES ABSOLUTE COUNT (BEAKER) (test 0.39 K/ L 1.48-4.50 glsj=289) MONOCYTES ABSOLUTE COUNT (BEAKER) (test 1.28 K/ L 0.00-1.30 uenr=857) EOSINOPHILS ABSOLUTE COUNT (BEAKER) (test 0.26 K/ L 0.00-0.50 bqab=175) BASOPHILS ABSOLUTE COUNT (BEAKER) (test 0.02 K/ L 0.00-0.20 lugq=177) 0.00CALCIUM, [id number] 03:46:00 Test Item Value Reference Range Comments CALCIUM IONIZED (BEAKER) (test dhqf=401) 1.21 mmol/L 1.12-1.27 PH, BLOOD (BEAKER) (test nlzu=7900) 7.48 BLOOD GAS, [id number] 03:46:00 Test Item Value Reference Range Comments PH ARTERIAL (BEAKER) (test zgxp=627) 7.47 7.35-7.45 PCO2 ARTERIAL (BEAKER) (test tgoc=012) 40 mmHg 35-45 PO2 ARTERIAL (BEAKER) (test ltmb=349) 98 mmHg 80-90 O2 SATURATION ARTERIAL (BEAKER) (test qmzv=352) 97.5 % 96.0-97.0 HCO3 ARTERIAL (BEAKER) (test essh=132) 28 mmol/L 21-29 BASE EXCESS ARTERIAL (BEAKER) (test uuwk=310) 4.1 mmol/L -2.0-3.0 PATIENT TEMPERATURE (BEAKER) (test groe=5762) 38.1 C FIO2 (BEAKER) (test qkxp=8964) 40.0 % POCT-GLUCOSE [id number] 03:44:00 Test Item Value Reference Range Comments POC-GLUCOSE METER (BEAKER) 118 mg/dL 70-110 TESTED AT [address] (test ncsa=5012) [facility] [address] POCT-GLUCOSE [id number] 01:06:00 Test Item Value Reference Range Comments POC-GLUCOSE METER (BEAKER) 127 mg/dL 70-110 TESTED AT [address] (test zfik=1422) [facility] [address] [id number] 23:41:00 Test Item Value Reference Range Comments HEMOGLOBIN (BEAKER) (test jzfm=739) 8.3 GM/DL 12.0-15.0 VANCOMYCIN LEVEL, [id number] 23:38:00 Test Item Value Reference Range Comments VANCOMYCIN RANDOM (BEAKER) (test gyoc=010) 23.9 ug/mL Reference Range: No [id number] 23:16:00 Test Item Value Reference Range Comments POTASSIUM (BEAKER) (test xdff=083) 4.4 meq/L 3.5-5.1 Check Serum Magnesium level 2 hours after IV magnesium replacement.Check Serum Potassium level 2 hours after oral potassium replacement completed or 30 min after intravenous potassium replacement.[id number] 23:16:00 Test Item Value Reference Range Comments MAGNESIUM (BEAKER) (test zgab=723) 1.8 mg/dL 1.6-2.6 Check Serum Magnesium level 2 hours after IV magnesium replacement.Check Serum Potassium level 2 hours after oral potassium replacement completed or 30 min after intravenous potassium replacement.POCT-GLUCOSE [id number] 22:57:00 Test Item Value Reference Range Comments POC-GLUCOSE METER (BEAKER) 159 mg/dL 70-110 TESTED AT [address] (test ffwa=9474) [place] [id number] POCT-GLUCOSE [id number] 22:57:00 Test Item Value Reference Range Comments POC-GLUCOSE METER (BEAKER) 168 mg/dL 70-110 TESTED AT [address] (test fuqv=7178) [facility] [address] BLOOD GAS, [id number] 21:12:00 Test Item Value Reference Range Comments PH ARTERIAL (BEAKER) (test sqnw=007) 7.48 7.35-7.45 PCO2 ARTERIAL (BEAKER) (test yvut=694) 42 mmHg 35-45 PO2 ARTERIAL (BEAKER) (test tytr=188) 58 mmHg 80-90 O2 SATURATION ARTERIAL (BEAKER) (test qsii=827) 91.7 % 96.0-97.0 HCO3 ARTERIAL (BEAKER) (test wrkd=501) 30 mmol/L 21-29 BASE EXCESS ARTERIAL (BEAKER) (test apek=591) 6.0 mmol/L -2.0-3.0 PATIENT TEMPERATURE (BEAKER) (test vegu=3825) 37.0 C GLUCOSE-STAT [id number] 21:12:00 Test Item Value Reference Range Comments GLUCOSE RANDOM (BEAKER) (test eupu=542) 159 mg/dL 70-110 POTASSIUM-STAT [id number] 21:11:00 Test Item Value Reference Range Comments POTASSIUM (BEAKER) (test klpy=920) 4.4 meq/L 3.6-5.5 [id number] 20:26:00 Test Item Value Reference Range Comments POTASSIUM (BEAKER) (test bduc=996) 4.6 meq/L 3.5-5.1 Check Serum Magnesium level 2 hours after IV magnesium replacement.Check Serum Potassium level 2 hours after oral potassium replacement completed or 30 min after intravenous potassium replacement.[id number] 20:26:00 Test Item Value Reference Range Comments MAGNESIUM (BEAKER) (test brzt=901) 2.3 mg/dL 1.6-2.6 Check Serum Magnesium level 2 hours after IV magnesium replacement.Check Serum Potassium level 2 hours after oral potassium replacement completed or 30 min after intravenous potassium replacement.POCT-GLUCOSE [id number] 20:04:00 Test Item Value Reference Range Comments POC-GLUCOSE METER (BEAKER) 145 mg/dL 70-110 TESTED AT [address] (test nvyp=9912) [place] [id number] POCT-GLUCOSE [id number] 20:04:00 Test Item Value Reference Range Comments POC-GLUCOSE METER (BEAKER) 140 mg/dL 70-110 TESTED AT [address] (test fjmi=5274) [facility] [address] THROMBOELASTOGRAPH (TEG)2016-07-23 18:54:00 Test Item Value Reference Range Comments TEG ACTIVATED CLOTTING TIME (BEAKER) (test 6.8 minutes 4.0-7.0 pzln=1519) TEG FIBRINOGEN ACTIVITY (BEAKER) (test 75.3 degrees 61.0-73.0 lnio=1077) TEG PLT. AGGREGATION (BEAKER) (test ucpl=0460) 70.8 MM 55.0-65.0 TEG FIBRINOLYSIS (BEAKER) (test zvzf=9724) 0.0 % 0.0-5.0 TGH ACTIVATED CLOTTING TIME (BEAKER) (test 6.1 minutes 4.0-7.0 wqme=5481) [facility] FIBRINOGEN ACTIVITY (BEAKER) (test 77.8 degrees 61.0-73.0 udfz=3525) T[facility] PLT. AGGREGATION (BEAKER) (test xxnf=9665) 73.5 MM 55.0-65.0 TGH FIBRINOLYSIS (BEAKER) (test wvsi=4260) 0.0 % 0.0-5.0 CBC W/PLT COUNT & AUTO [id number] 18:04:00 Test Item Value Reference Range Comments WHITE BLOOD CELL COUNT (BEAKER) (test bwks=782) 7.1 K/ L 4.0-10.0 RED BLOOD CELL COUNT (BEAKER) (test kuqp=848) 3.11 M/ L 4.00-5.00 HEMOGLOBIN (BEAKER) (test pzsk=845) 8.9 GM/DL 12.0-15.0 HEMATOCRIT (BEAKER) (test wgvh=950) 26.1 % 36.0-45.0 MEAN CORPUSCULAR VOLUME (BEAKER) (test nlxp=643) 83.7 fL 82.0-99.0 MEAN CORPUSCULAR HEMOGLOBIN (BEAKER) (test 28.6 pg 27.0-33.0 stll=159) MEAN CORPUSCULAR HEMOGLOBIN CONC (BEAKER) (test 34.2 GM/DL 32.0-36.0 jcjn=677) RED CELL DISTRIBUTION WIDTH (BEAKER) (test 14.8 % 10.3-14.2 mrni=071) PLATELET COUNT (BEAKER) (test gsqj=944) 190 K/CU MM 150-430 MEAN PLATELET VOLUME (BEAKER) (test lswe=771) 7.1 fL 6.5-10.5 NUCLEATED RED BLOOD CELLS (BEAKER) (test 0 /100 WBC 0-0 rgsl=145) NEUTROPHILS RELATIVE PERCENT (BEAKER) (test 82 % esyf=463) LYMPHOCYTES RELATIVE PERCENT (BEAKER) (test 6 % bqad=565) MONOCYTES RELATIVE PERCENT (BEAKER) (test 11 % udwr=109) EOSINOPHILS RELATIVE PERCENT (BEAKER) (test 1 % xnbk=449) BASOPHILS RELATIVE PERCENT (BEAKER) (test 0 % ucco=755) NEUTROPHILS ABSOLUTE COUNT (BEAKER) (test 5.78 K/ L 1.80-8.00 exmr=588) LYMPHOCYTES ABSOLUTE COUNT (BEAKER) (test 0.42 K/ L 1.48-4.50 smbk=223) MONOCYTES ABSOLUTE COUNT (BEAKER) (test 0.77 K/ L 0.00-1.30 akgi=496) EOSINOPHILS ABSOLUTE COUNT (BEAKER) (test 0.08 K/ L 0.00-0.50 rair=275) BASOPHILS ABSOLUTE COUNT (BEAKER) (test 0.00 K/ L 0.00-0.20 dvly=525) [id number] 17:34:00 Test Item Value Reference Range Comments POTASSIUM (BEAKER) (test jqst=628) 3.9 meq/L 3.5-5.1 [id number] 17:34:00 Test Item Value Reference Range Comments MAGNESIUM (BEAKER) (test vhbb=569) 2.1 mg/dL 1.6-2.6 [id number] 17:34:00 Test Item Value Reference Range Comments PHOSPHORUS (BEAKER) (test yvvo=767) 3.2 mg/dL 2.3-4.7 [id number] 17:34:00 Test Item Value Reference Range Comments SODIUM (BEAKER) (test cutb=966) 141 meq/L 136-145 [id number] 17:34:00 Test Item Value Reference Range Comments GLUCOSE RANDOM (BEAKER) (test qhnu=912) 145 mg/dL 70-105 Effective 12/27/2013: Reference Range Change-Adult onlyNew: 70-105 Previous : 70-110LACTIC ACID, ARTERIAL, WHOLE [id number] 17:31:00 Test Item Value Reference Range Comments LACTATE BLOOD ARTERIAL (2) (BEAKER) (test 2.7 mmol/L 0.5-2.2 bmca=2539) Effective 06/13/2015: Units/Reference Range ChangeNew: 0.5-2.2 mmol/L Previous: 5 -20 mg/dLSpecimen slightly ictericBLOOD GAS, [id number] 17:17:00 Test Item Value Reference Range Comments PH ARTERIAL (BEAKER) (test cfvh=128) 7.54 7.35-7.45 PCO2 ARTERIAL (BEAKER) (test okcp=916) 33 mmHg 35-45 PO2 ARTERIAL (BEAKER) (test sedp=432) 148 mmHg 80-90 O2 SATURATION ARTERIAL (BEAKER) (test itsp=573) 99.2 % 96.0-97.0 HCO3 ARTERIAL (BEAKER) (test fnid=812) 28 mmol/L 21-29 BASE EXCESS ARTERIAL (BEAKER) (test zswg=520) 5.0 mmol/L -2.0-3.0 PATIENT TEMPERATURE (BEAKER) (test blyd=9408) 36.3 C FIO2 (BEAKER) (test slqf=7557) 60.0 % GLUCOSE-STAT [id number] 17:17:00 Test Item Value Reference Range Comments GLUCOSE RANDOM (BEAKER) (test yqrr=983) 153 mg/dL 70-110 HGB/HCT (H&H) - STAT [id number] 17:17:00 Test Item Value Reference Range Comments HEMOGLOBIN (BEAKER) (test khgp=133) 9.1 g/dL 12.0-15.0 HEMATOCRIT (BEAKER) (test fgnp=410) 27.0 % 36.0-45.0 OXYGEN SATURATION, [id number] 17:15:00 Test Item Value Reference Range Comments O2 SATURATION (MEASURED) (BEAKER) (test xymn=0853) 61.6 % From distal port of IJ central venous catheterCALCIUM, [id number] 17:15: 00 Test Item Value Reference Range Comments CALCIUM IONIZED (BEAKER) (test uyoi=534) 1.24 mmol/L 1.12-1.27 PH, BLOOD (BEAKER) (test iwst=1392) 7.53 SODIUM NA-STAT [id number] 17:15:00 Test Item Value Reference Range Comments SODIUM (BEAKER) (test dcxe=621) 137 meq/L 135-148 POTASSIUM-STAT [id number] 17:15:00 Test Item Value Reference Range Comments POTASSIUM (BEAKER) (test ebga=014) 3.6 meq/L 3.6-5.5 THROMBOELASTOGRAPH (TEG)2016-07-23 16:17:00 Test Item Value Reference Range Comments TEG ACTIVATED CLOTTING TIME (BEAKER) (test 5.2 minutes 4.0-7.0 xlmm=7954) TEG FIBRINOGEN ACTIVITY (BEAKER) (test 71.1 degrees 61.0-73.0 fktx=5076) TEG PLT. AGGREGATION (BEAKER) (test njcz=8978) 66.3 MM 55.0-65.0 TGH ACTIVATED CLOTTING TIME (BEAKER) (test 5.5 minutes 4.0-7.0 krbd=4441) TGH FIBRINOGEN ACTIVITY (BEAKER) (test 76.0 degrees 61.0-73.0 ojxv=7825) TGH PLT. AGGREGATION (BEAKER) (test mpzq=6594) 59.6 MM 55.0-65.0 BLOOD GAS, [id number] 15:17:00 Test Item Value Reference Range Comments PH ARTERIAL (BEAKER) (test hnid=181) 7.38 7.35-7.45 PCO2 ARTERIAL (BEAKER) (test fwlx=627) 47 mmHg 35-45 PO2 ARTERIAL (BEAKER) (test dypg=811) 287 mmHg 80-90 O2 SATURATION ARTERIAL (BEAKER) (test vhzx=294) 99.6 % 96.0-97.0 HCO3 ARTERIAL (BEAKER) (test lcqj=099) 27 mmol/L 21-29 BASE EXCESS ARTERIAL (BEAKER) (test bgih=144) 1.4 mmol/L -2.0-3.0 PATIENT TEMPERATURE (BEAKER) (test ngsu=0762) 37.0 C FIO2 (BEAKER) (test qayc=2058) 100.0 % SODIUM NA-STAT [id number] 15:17:00 Test Item Value Reference Range Comments SODIUM (BEAKER) (test pnim=039) 133 meq/L 135-148 GLUCOSE-STAT [id number] 15:17:00 Test Item Value Reference Range Comments GLUCOSE RANDOM (BEAKER) (test ieor=211) 187 mg/dL 70-110 HGB/HCT (H&H) - STAT [id number] 15:17:00 Test Item Value Reference Range Comments HEMOGLOBIN (BEAKER) (test ualo=521) 8.5 g/dL 12.0-15.0 HEMATOCRIT (BEAKER) (test dpbu=763) 25.0 % 36.0-45.0 CALCIUM, [id number] 15:17:00 Test Item Value Reference Range Comments CALCIUM IONIZED (BEAKER) (test zowy=851) 1.87 mmol/L 1.12-1.27 PH, BLOOD (BEAKER) (test bpyy=8657) 7.38 POTASSIUM-STAT [id number] 15:15:00 Test Item Value Reference Range Comments POTASSIUM (BEAKER) (test klin=147) 5.3 meq/L 3.6-5.5 BASIC METABOLIC [id number] 13:34:00 Test Item Value Reference Range Comments SODIUM (BEAKER) (test 141 meq/L 136-145 jcls=003) POTASSIUM (BEAKER) (test 4.5 meq/L 3.5-5.1 usuk=540) CHLORIDE (BEAKER) (test 104 meq/L 98-107 wshi=763) CO2 (BEAKER) (test 25 meq/L 22-29 vyxk=482) BLOOD UREA NITROGEN 22 mg/dL 7-21 (BEAKER) (test irrx=245) CREATININE (BEAKER) (test 1.01 mg/dL 0.57-1.25 tqam=771) GLUCOSE RANDOM (BEAKER) 195 mg/dL 70-105 (test hxdl=923) CALCIUM (BEAKER) (test 11.6 mg/dL 8.4-10.2 uvdn=170) EGFR (BEAKER) (test 73 mL/min/1.73 sq m ESTIMATED GFR IS NOT qnex=6288) ACCURATE CREATININE CLEARANCE IN PREDICTING GLOMERULAR FILTRATION RATE. ESTIMATED GFR IS NOT APPLICABLE FOR DIALYSIS PATIENTS. [id number] 13:30:00 Test Item Value Reference Range Comments PHOSPHORUS (BEAKER) (test kita=555) 5.9 mg/dL 2.3-4.7 [id number] 13:30:00 Test Item Value Reference Range Comments GLUCOSE RANDOM (BEAKER) (test aftr=805) 195 mg/dL 70-105 Effective 12/27/2013: Reference Range Change-Adult onlyNew: 70-105 Previous : 70-110LACTIC ACID, ARTERIAL, WHOLE [id number] 13:24:00 Test Item Value Reference Range Comments LACTATE BLOOD ARTERIAL (2) (BEAKER) (test 3.6 mmol/L 0.5-2.2 cdjh=2309) Effective 06/13/2015: Units/Reference Range ChangeNew: 0.5-2.2 mmol/L Previous: 5 -20 mg/dLPROTHROMBIN TIME/[id number] 13:20:00 Test Item Value Reference Range Comments PROTIME (BEAKER) (test xddi=558) 16.2 seconds 11.7-14.7 INR (BEAKER) (test isaz=876) 1.3 <=5.9 RECOMMENDED COUMADIN/WARFARIN INR THERAPY RANGESSTANDARD DOSE: 2.0 - 3.0 Includes: PROPHYLAXIS forvenous thrombosis, systemic embolization; TREATMENT for venous thrombosis and/or pulmonary embolus.HIGH RISK: Target INR is 2.5-3.5 for patients with mechanical heart valves.[id number] 13:20:00 Test Item Value Reference Range Comments PARTIAL THROMBOPLASTIN TIME (BEAKER) (test 32.3 seconds 22.5-36.0 pqwh=291) CBC W/PLT COUNT & AUTO [id number] 13:16:00 Test Item Value Reference Range Comments WHITE BLOOD CELL COUNT (BEAKER) (test cuxe=727) 10.4 K/ L 4.0-10.0 RED BLOOD CELL COUNT (BEAKER) (test csnz=940) 3.40 M/ L 4.00-5.00 HEMOGLOBIN (BEAKER) (test hprn=187) 10.5 GM/DL 12.0-15.0 HEMATOCRIT (BEAKER) (test pniy=920) 29.6 % 36.0-45.0 MEAN CORPUSCULAR VOLUME (BEAKER) (test yrch=382) 87.0 fL 82.0-99.0 MEAN CORPUSCULAR HEMOGLOBIN (BEAKER) (test 30.8 pg 27.0-33.0 gblr=931) MEAN CORPUSCULAR HEMOGLOBIN CONC (BEAKER) (test 35.4 GM/DL 32.0-36.0 exai=328) RED CELL DISTRIBUTION WIDTH (BEAKER) (test 13.9 % 10.3-14.2 fgjr=035) PLATELET COUNT (BEAKER) (test dkiy=761) 147 K/CU MM 150-430 MEAN PLATELET VOLUME (BEAKER) (test awag=998) 7.1 fL 6.5-10.5 NUCLEATED RED BLOOD CELLS (BEAKER) (test 0 /100 WBC 0-0 ywsn=311) NEUTROPHILS RELATIVE PERCENT (BEAKER) (test 79 % wknm=869) LYMPHOCYTES RELATIVE PERCENT (BEAKER) (test 13 % epgd=832) MONOCYTES RELATIVE PERCENT (BEAKER) (test 6 % avul=680) EOSINOPHILS RELATIVE PERCENT (BEAKER) (test 1 % xkmk=724) BASOPHILS RELATIVE PERCENT (BEAKER) (test 0 % gpiy=007) NEUTROPHILS ABSOLUTE COUNT (BEAKER) (test 8.24 K/ L 1.80-8.00 mdkq=548) LYMPHOCYTES ABSOLUTE COUNT (BEAKER) (test 1.38 K/ L 1.48-4.50 lfzf=368) MONOCYTES ABSOLUTE COUNT (BEAKER) (test 0.66 K/ L 0.00-1.30 ynon=468) EOSINOPHILS ABSOLUTE COUNT (BEAKER) (test 0.12 K/ L 0.00-0.50 ckqz=845) BASOPHILS ABSOLUTE COUNT (BEAKER) (test 0.01 K/ L 0.00-0.20 oxhz=866) 0.00GLUCOSE-STAT [id number] 13:08:00 Test Item Value Reference Range Comments GLUCOSE RANDOM (BEAKER) (test hvyi=910) 191 mg/dL 70-110 BLOOD GAS, [id number] 13:08:00 Test Item Value Reference Range Comments PH ARTERIAL (BEAKER) (test nart=666) 7.40 7.35-7.45 PCO2 ARTERIAL (BEAKER) (test kkuo=459) 46 mmHg 35-45 PO2 ARTERIAL (BEAKER) (test rjcf=448) 71 mmHg 80-90 O2 SATURATION ARTERIAL (BEAKER) (test wutq=133) 95.0 % 96.0-97.0 HCO3 ARTERIAL (BEAKER) (test imtc=649) 28 mmol/L 21-29 BASE EXCESS ARTERIAL (BEAKER) (test qnrt=105) 2.5 mmol/L -2.0-3.0 PATIENT TEMPERATURE (BEAKER) (test ebot=6787) 35.9 C FIO2 (BEAKER) (test ehay=7197) 60.0 % GLUCOSE-STAT [id number] 13:08:00 Test Item Value Reference Range Comments GLUCOSE RANDOM (BEAKER) (test wxnv=195) 200 mg/dL 70-110 HGB/HCT (H&H) - STAT [id number] 13:08:00 Test Item Value Reference Range Comments HEMOGLOBIN (BEAKER) (test aojs=443) 10.6 g/dL 12.0-15.0 HEMATOCRIT (BEAKER) (test kage=947) 31.0 % 36.0-45.0 CALCIUM, [id number] 13:08:00 Test Item Value Reference Range Comments CALCIUM IONIZED (BEAKER) (test xaqe=575) 1.31 mmol/L 1.12-1.27 PH, BLOOD (BEAKER) (test jgzg=6096) 7.35 SODIUM NA-STAT [id number] 13:07:00 Test Item Value Reference Range Comments SODIUM (BEAKER) (test twfd=283) 135 meq/L 135-148 POTASSIUM-STAT [id number] 13:07:00 Test Item Value Reference Range Comments POTASSIUM (BEAKER) (test tnea=592) 4.4 meq/L 3.6-5.5 OXYGEN SATURATION, [id number] 13:07:00 Test Item Value Reference Range Comments O2 SATURATION (MEASURED) (BEAKER) (test pzry=9250) 53.8 % [id number] 11:47:00 Test Item Value Reference Range Comments ACTIVATED CLOTTING TIME 131 sec TESTED AT [place] [id number] [facility] (BEAKER) (test uddw=515) [place] [address] [id number] 11:47:00 Test Item Value Reference Range Comments ACTIVATED CLOTTING TIME 497 sec TESTED AT [address] (BEAKER) (test xwit=952) [place] [address] [id number] 11:47:00 Test Item Value Reference Range Comments ACTIVATED CLOTTING TIME 657 sec TESTED AT [address] (BEAKER) (test ohns=388) [place] [address] THROMBOELASTOGRAPH (TEG)2016-07-23 11:46:00 Test Item Value Reference Range Comments TEG ACTIVATED CLOTTING TIME (BEAKER) (test 4.5 minutes 4.0-7.0 xubj=9033) TEG FIBRINOGEN ACTIVITY (BEAKER) (test 78.6 degrees 61.0-73.0 aopj=7417) TEG PLT. AGGREGATION (BEAKER) (test pnwd=4837) 55.5 MM 55.0-65.0 TGH ACTIVATED CLOTTING TIME (BEAKER) (test 3.8 minutes 4.0-7.0 xhht=7353) TGH FIBRINOGEN ACTIVITY (BEAKER) (test 77.0 degrees 61.0-73.0 zerb=5430) TGH PLT. AGGREGATION (BEAKER) (test gxnm=5314) 51.3 MM 55.0-65.0 BLOOD GAS, [id number] 11:34:00 Test Item Value Reference Range Comments PH ARTERIAL (BEAKER) (test cwql=049) 7.44 7.35-7.45 PCO2 ARTERIAL (BEAKER) (test ujnq=962) 39 mmHg 35-45 PO2 ARTERIAL (BEAKER) (test xahp=695) 198 mmHg 80-90 O2 SATURATION ARTERIAL (BEAKER) (test ohfc=601) 99.4 % 96.0-97.0 HCO3 ARTERIAL (BEAKER) (test hqam=942) 26 mmol/L 21-29 BASE EXCESS ARTERIAL (BEAKER) (test eksa=042) 1.8 mmol/L -2.0-3.0 PATIENT TEMPERATURE (BEAKER) (test ckhd=9059) 36.0 C FIO2 (BEAKER) (test wwvf=1252) 70.0 % GLUCOSE-STAT [id number] 11:34:00 Test Item Value Reference Range Comments GLUCOSE RANDOM (BEAKER) (test rlmh=927) 212 mg/dL 70-110 HGB/HCT (H&H) - STAT [id number] 11:34:00 Test Item Value Reference Range Comments HEMOGLOBIN (BEAKER) (test itod=228) 8.6 g/dL 12.0-15.0 HEMATOCRIT (BEAKER) (test qhfo=740) 25.0 % 36.0-45.0 CALCIUM, [id number] 11:34:00 Test Item Value Reference Range Comments CALCIUM IONIZED (BEAKER) (test wwlu=400) 1.39 mmol/L 1.12-1.27 PH, BLOOD (BEAKER) (test orzh=5564) 7.43 SODIUM NA-STAT [id number] 11:33:00 Test Item Value Reference Range Comments SODIUM (BEAKER) (test epwi=980) 137 meq/L 135-148 POTASSIUM-STAT [id number] 11:33:00 Test Item Value Reference Range Comments POTASSIUM (BEAKER) (test xryt=049) 3.6 meq/L 3.6-5.5 [id number] 11:21:00 Test Item Value Reference Range Comments PARTIAL THROMBOPLASTIN TIME (BEAKER) (test 42.7 seconds 22.5-36.0 menv=572) PROTHROMBIN [id number] 11:20:00 Test Item Value Reference Range Comments PROTIME (BEAKER) (test hkjg=705) 18.8 seconds 11.7-14.7 INR (BEAKER) (test tjag=346) 1.6 <=5.9 RECOMMENDED COUMADIN/WARFARIN INR THERAPY RANGESSTANDARD DOSE: 2.0 - 3.0 Includes: PROPHYLAXIS forvenous thrombosis, systemic embolization; TREATMENT for venous thrombosis and/or pulmonary embolus.HIGH RISK: Target INR is 2.5-3.5 for patients with mechanical heart valves.[id number] 11:20:00 Test Item Value Reference Range Comments FIBRINOGEN LEVEL (BEAKER) (test gdib=778) 315 mg/dl 225-434 PLATELET [id number] 11:18:00 Test Item Value Reference Range Comments PLATELET COUNT (BEAKER) (test rfnx=991) 121 K/CU MM 150-430 PLATELET [id number] 11:08:00 Test Item Value Reference Range Comments PLATELET COUNT (BEAKER) (test toof=186) 50 K/CU MM 150-430 THROMBOELASTOGRAPH (TEG)2016-07-23 11:07:00 Test Item Value Reference Range Comments TEG ACTIVATED CLOTTING TIME (BEAKER) (test 6.1 minutes 4.0-7.0 ufhm=2956) TEG FIBRINOGEN ACTIVITY (BEAKER) (test 69.8 degrees 61.0-73.0 bdoe=5266) TEG PLT. AGGREGATION (BEAKER) (test wdmz=9551) 61.4 MM 55.0-65.0 TGH ACTIVATED CLOTTING TIME (BEAKER) (test 5.7 minutes 4.0-7.0 qcyr=4645) TGH FIBRINOGEN ACTIVITY (BEAKER) (test 68.8 degrees 61.0-73.0 tibs=6494) TGH PLT. AGGREGATION (BEAKER) (test rjgd=8151) 56.8 MM 55.0-65.0 BLOOD GAS, [id number] 10:53:00 Test Item Value Reference Range Comments PH ARTERIAL (BEAKER) (test uqjh=215) 7.39 7.35-7.45 PCO2 ARTERIAL (BEAKER) (test aqcr=782) 42 mmHg 35-45 PO2 ARTERIAL (BEAKER) (test lagw=235) 192 mmHg 80-90 O2 SATURATION ARTERIAL (BEAKER) (test nrnc=676) 99.3 % 96.0-97.0 HCO3 ARTERIAL (BEAKER) (test irwf=122) 26 mmol/L 21-29 BASE EXCESS ARTERIAL (BEAKER) (test ukic=494) 0.2 mmol/L -2.0-3.0 PATIENT TEMPERATURE (BEAKER) (test gbki=1060) 36.0 C FIO2 (BEAKER) (test ikgx=0201) 100.0 % SODIUM NA-STAT [id number] 10:53:00 Test Item Value Reference Range Comments SODIUM (BEAKER) (test rkkw=966) 134 meq/L 135-148 GLUCOSE-STAT [id number] 10:53:00 Test Item Value Reference Range Comments GLUCOSE RANDOM (BEAKER) (test jjfi=394) 228 mg/dL 70-110 HGB/HCT (H&H) - STAT [id number] 10:53:00 Test Item Value Reference Range Comments HEMOGLOBIN (BEAKER) (test sgej=656) 8.6 g/dL 12.0-15.0 HEMATOCRIT (BEAKER) (test nmnm=830) 25.0 % 36.0-45.0 POTASSIUM-STAT [id number] 10:51:00 Test Item Value Reference Range Comments POTASSIUM (BEAKER) (test oozc=506) 4.1 meq/L 3.6-5.5 CALCIUM, [id number] 10:50:00 Test Item Value Reference Range Comments CALCIUM IONIZED (BEAKER) (test bvmm=760) 1.00 mmol/L 1.12-1.27 PH, BLOOD (BEAKER) (test lfxk=2424) 7.38 PROTHROMBIN [id number] 10:45:00 Test Item Value Reference Range Comments PROTIME (BEAKER) (test gvqj=306) 21.8 seconds 11.7-14.7 INR (BEAKER) (test itaw=313) 1.9 <=5.9 RECOMMENDED COUMADIN/WARFARIN INR THERAPY RANGESSTANDARD DOSE: 2.0 - 3.0 Includes: PROPHYLAXIS forvenous thrombosis, systemic embolization; TREATMENT for venous thrombosis and/or pulmonary embolus.HIGH RISK: Target INR is 2.5-3.5 for patients with mechanical heart valves.[id number] 10:45:00 Test Item Value Reference Range Comments FIBRINOGEN LEVEL (BEAKER) (test isny=757) 248 mg/dl 225-434 [id number] 10:45:00 Test Item Value Reference Range Comments PARTIAL THROMBOPLASTIN TIME (BEAKER) (test 35.4 seconds 22.5-36.0 gfjr=582) BLOOD GAS, [id number] 10:29:00 Test Item Value Reference Range Comments PH ARTERIAL (BEAKER) (test qvtx=272) 7.45 7.35-7.45 PCO2 ARTERIAL (BEAKER) (test vfnw=575) 36 mmHg 35-45 PO2 ARTERIAL (BEAKER) (test qspg=744) 314 mmHg 80-90 O2 SATURATION ARTERIAL (BEAKER) (test wkjx=425) 99.7 % 96.0-97.0 HCO3 ARTERIAL (BEAKER) (test fknn=586) 24 mmol/L 21-29 BASE EXCESS ARTERIAL (BEAKER) (test djqc=943) -0.1 mmol/L -2.0-3.0 PATIENT TEMPERATURE (BEAKER) (test zjdf=3522) 36.0 C FIO2 (BEAKER) (test radf=5625) 100.0 % SODIUM NA-STAT [id number] 10:29:00 Test Item Value Reference Range Comments SODIUM (BEAKER) (test gwnq=376) 131 meq/L 135-148 GLUCOSE-STAT [id number] 10:29:00 Test Item Value Reference Range Comments GLUCOSE RANDOM (BEAKER) (test vytp=798) 212 mg/dL 70-110 HGB/HCT (H&H) - STAT [id number] 10:29:00 Test Item Value Reference Range Comments HEMOGLOBIN (BEAKER) (test dwcj=647) 6.7 g/dL 12.0-15.0 HEMATOCRIT (BEAKER) (test htsm=777) 20.0 % 36.0-45.0 CALCIUM, [id number] 10:29:00 Test Item Value Reference Range Comments CALCIUM IONIZED (BEAKER) (test gapd=177) 1.14 mmol/L 1.12-1.27 PH, BLOOD (BEAKER) (test uazr=5545) 7.45 POTASSIUM-STAT [id number] 10:27:00 Test Item Value Reference Range Comments POTASSIUM (BEAKER) (test mdlk=917) 4.2 meq/L 3.6-5.5 POTASSIUM-STAT [id number] 10:01:00 Test Item Value Reference Range Comments POTASSIUM (BEAKER) (test rhwe=819) 5.3 meq/L 3.6-5.5 BLOOD GAS, [id number] 10:01:00 Test Item Value Reference Range Comments PH ARTERIAL (BEAKER) (test mcbs=482) 7.45 7.35-7.45 PCO2 ARTERIAL (BEAKER) (test irbm=441) 39 mmHg 35-45 PO2 ARTERIAL (BEAKER) (test blhd=001) 356 mmHg 80-90 O2 SATURATION ARTERIAL (BEAKER) (test sbls=580) 99.8 % 96.0-97.0 HCO3 ARTERIAL (BEAKER) (test ypoi=898) 27 mmol/L 21-29 BASE EXCESS ARTERIAL (BEAKER) (test fejz=208) 2.3 mmol/L -2.0-3.0 PATIENT TEMPERATURE (BEAKER) (test udyo=6372) 36.5 C FIO2 (BEAKER) (test igld=5226) 80.0 % SODIUM NA-STAT [id number] 10:01:00 Test Item Value Reference Range Comments SODIUM (BEAKER) (test wqcy=462) 129 meq/L 135-148 GLUCOSE-STAT [id number] 10:01:00 Test Item Value Reference Range Comments GLUCOSE RANDOM (BEAKER) (test hbdk=020) 222 mg/dL 70-110 HGB/HCT (H&H) - STAT [id number] 10:01:00 Test Item Value Reference Range Comments HEMOGLOBIN (BEAKER) (test etzz=124) 7.4 g/dL 12.0-15.0 HEMATOCRIT (BEAKER) (test lvdh=510) 22.0 % 36.0-45.0 HGB/HCT (H&H) - STAT [id number] 09:39:00 Test Item Value Reference Range Comments HEMOGLOBIN (BEAKER) (test nuhl=229) 5.7 g/dL 12.0-15.0 HEMATOCRIT (BEAKER) (test cwua=732) 17.0 % 36.0-45.0 POTASSIUM-STAT [id number] 09:38:00 Test Item Value Reference Range Comments POTASSIUM (BEAKER) (test gcsl=479) 4.5 meq/L 3.6-5.5 BLOOD GAS, [id number] 09:38:00 Test Item Value Reference Range Comments PH ARTERIAL (BEAKER) (test amym=068) 7.41 7.35-7.45 PCO2 ARTERIAL (BEAKER) (test pwct=594) 39 mmHg 35-45 PO2 ARTERIAL (BEAKER) (test bwqh=820) 350 mmHg 80-90 O2 SATURATION ARTERIAL (BEAKER) (test wbqi=789) 99.8 % 96.0-97.0 HCO3 ARTERIAL (BEAKER) (test mbjy=452) 26 mmol/L 21-29 BASE EXCESS ARTERIAL (BEAKER) (test pcsj=147) 0.0 mmol/L -2.0-3.0 PATIENT TEMPERATURE (BEAKER) (test mqwe=2692) 32.3 C FIO2 (BEAKER) (test jlor=9664) 70.0 % SODIUM NA-STAT [id number] 09:38:00 Test Item Value Reference Range Comments SODIUM (BEAKER) (test sycc=652) 127 meq/L 135-148 GLUCOSE-STAT [id number] 09:38:00 Test Item Value Reference Range Comments GLUCOSE RANDOM (BEAKER) (test mwan=774) 211 mg/dL 70-110 BLOOD GAS, [id number] 09:37:00 Test Item Value Reference Range Comments PH VENOUS (BEAKER) (test tura=450) 7.37 7.32-7.42 PCO2 VENOUS (BEAKER) (test xanx=019) 45 mmHg 41-51 PO2 VENOUS (BEAKER) (test pvwm=693) 38 mmHg 25-40 O2 SATURATION VENOUS (BEAKER) (test ufmw=801) 82.8 % 40.0-70.0 HCO3 VENOUS (BEAKER) (test rqag=004) 27 mmol/L 21-29 BASE EXCESS VENOUS (BEAKER) (test udpa=897) 0.4 mmol/L -2.0-3.0 PATIENT TEMPERATURE (BEAKER) (test lyeq=3452) 32.3 C FIO2 (BEAKER) (test pwcq=5046) 70.0 % HEMOGLOBIN [id number] 09:26:00 Test Item Value Reference Range Comments HEMOGLOBIN A1C (BEAKER) (test 9.0 % 4.3-6.1 POSSIBLE HEMOGLOBIN C VARIANT qhha=160) NOTED IN HEMOGLOBIN A1C CHROMATOGRAPH. SUGGEST HEMOGLOBIN ELECTROPHORESIS IF CLINICALLY INDICATED. POTASSIUM-STAT [id number] 08:21:00 Test Item Value Reference Range Comments POTASSIUM (BEAKER) (test xkbt=075) 4.9 meq/L 3.6-5.5 BLOOD GAS, [id number] 08:21:00 Test Item Value Reference Range Comments PH ARTERIAL (BEAKER) (test acyh=763) 7.43 7.35-7.45 PCO2 ARTERIAL (BEAKER) (test lyvq=889) 40 mmHg 35-45 PO2 ARTERIAL (BEAKER) (test hbku=431) 226 mmHg 80-90 O2 SATURATION ARTERIAL (BEAKER) (test ncfi=080) 99.5 % 96.0-97.0 HCO3 ARTERIAL (BEAKER) (test ypvq=545) 26 mmol/L 21-29 BASE EXCESS ARTERIAL (BEAKER) (test brkc=670) 1.5 mmol/L -2.0-3.0 PATIENT TEMPERATURE (BEAKER) (test nbek=4570) 36.0 C FIO2 (BEAKER) (test wvwr=2128) 74.0 % SODIUM NA-STAT [id number] 08:21:00 Test Item Value Reference Range Comments SODIUM (BEAKER) (test yjjd=452) 127 meq/L 135-148 GLUCOSE-STAT [id number] 08:21:00 Test Item Value Reference Range Comments GLUCOSE RANDOM (BEAKER) (test vunb=120) 275 mg/dL 70-110 HGB/HCT (H&H) - STAT [id number] 08:21:00 Test Item Value Reference Range Comments HEMOGLOBIN (BEAKER) (test zfnd=947) 12.0 g/dL 12.0-15.0 HEMATOCRIT (BEAKER) (test lvuj=929) 35.0 % 36.0-45.0 CALCIUM, [id number] 08:21:00 Test Item Value Reference Range Comments CALCIUM IONIZED (BEAKER) (test dgyq=489) 0.98 mmol/L 1.12-1.27 PH, BLOOD (BEAKER) (test ywjl=2772) 7.42 POCT-GLUCOSE [id number] 06:43:00 Test Item Value Reference Range Comments POC-GLUCOSE METER (BEAKER) 277 mg/dL 70-110 TESTED AT [facility] [address] [facility] (test opne=2155) [facility] [address] VANCOMYCIN LEVEL, [id number] 04:47:00 Test Item Value Reference Range Comments VANCOMYCIN TROUGH (BEAKER) (test twgz=015) 20.6 ug/mL 10.0-20.0 [id number] 04:24:00 Test Item Value Reference Range Comments MAGNESIUM (BEAKER) (test oomx=395) 1.8 mg/dL 1.6-2.6 BASIC METABOLIC [id number] 04:24:00 Test Item Value Reference Range Comments SODIUM (BEAKER) (test 133 meq/L 136-145 vmpv=650) POTASSIUM (BEAKER) (test 4.1 meq/L 3.5-5.1 sobg=834) CHLORIDE (BEAKER) (test 97 meq/L 98-107 oklc=687) CO2 (BEAKER) (test 25 meq/L 22-29 yixn=412) BLOOD UREA NITROGEN 25 mg/dL 7-21 (BEAKER) (test vzvq=329) CREATININE (BEAKER) (test 1.33 mg/dL 0.57-1.25 cegv=530) GLUCOSE RANDOM (BEAKER) 266 mg/dL 70-105 (test oqyy=550) CALCIUM (BEAKER) (test 9.4 mg/dL 8.4-10.2 mxql=600) EGFR (BEAKER) (test 53 mL/min/1.73 sq m ESTIMATED GFR IS NOT kotx=7634) ACCURATE CREATININE CLEARANCE IN PREDICTING GLOMERULAR FILTRATION RATE. ESTIMATED GFR IS NOT APPLICABLE FOR DIALYSIS PATIENTS. [id number] 04:23:00 Test Item Value Reference Range Comments PARTIAL THROMBOPLASTIN TIME (BEAKER) (test 71.7 seconds 22.5-36.0 wmoo=316) PROTHROMBIN [id number] 04:21:00 Test Item Value Reference Range Comments PROTIME (BEAKER) (test zlkd=194) 14.7 seconds 11.7-14.7 INR (BEAKER) (test eqtw=084) 1.2 <=5.9 RECOMMENDED COUMADIN/WARFARIN INR THERAPY RANGESSTANDARD DOSE: 2.0 - 3.0 Includes: PROPHYLAXIS forvenous thrombosis, systemic embolization; TREATMENT for venous thrombosis and/or pulmonary embolus.HIGH RISK: Target INR is 2.5-3.5 for patients with mechanical heart valves.CBC (HEMOGRAM ONLY)2016-07-23 04:20:00 Test Item Value Reference Range Comments WHITE BLOOD CELL COUNT (BEAKER) (test tlwy=723) 8.7 K/ L 4.0-10.0 RED BLOOD CELL COUNT (BEAKER) (test vbbc=827) 3.95 M/ L 4.00-5.00 HEMOGLOBIN (BEAKER) (test kcdf=774) 11.6 GM/DL 12.0-15.0 HEMATOCRIT (BEAKER) (test qvmm=702) 34.6 % 36.0-45.0 MEAN CORPUSCULAR VOLUME (BEAKER) (test edbo=759) 87.5 fL 82.0-99.0 MEAN CORPUSCULAR HEMOGLOBIN (BEAKER) (test 29.4 pg 27.0-33.0 deyc=872) MEAN CORPUSCULAR HEMOGLOBIN CONC (BEAKER) (test 33.6 GM/DL 32.0-36.0 pkod=472) RED CELL DISTRIBUTION WIDTH (BEAKER) (test 14.0 % 10.3-14.2 khpm=509) PLATELET COUNT (BEAKER) (test jzxg=826) 158 K/CU MM 150-430 MEAN PLATELET VOLUME (BEAKER) (test imwh=123) 8.0 fL 6.5-10.5 NUCLEATED RED BLOOD CELLS (BEAKER) (test 0 /100 WBC 0-0 wope=118) 0.00POCT-GLUCOSE [id number] 22:11:00 Test Item Value Reference Range Comments POC-GLUCOSE METER (BEAKER) 222 mg/dL 70-110 TESTED AT [address] (test vsmf=5170) [place] [address] [id number] 15:43:00 Test Item Value Reference Range Comments POTASSIUM (BEAKER) (test dyqu=969) 4.0 meq/L 3.5-5.1 [id number] 15:43:00 Test Item Value Reference Range Comments MAGNESIUM (BEAKER) (test mzqa=421) 2.2 mg/dL 1.6-2.6 POCT-GLUCOSE [id number] 13:30:00 Test Item Value Reference Range Comments POC-GLUCOSE METER (BEAKER) 67 mg/dL 70-110 TESTED AT [address] (test skqu=6847) [place] [id number] POCT-GLUCOSE [id number] 13:29:00 Test Item Value Reference Range Comments POC-GLUCOSE METER (BEAKER) 131 mg/dL 70-110 TESTED AT [address] (test pova=1192) [facility] [address] POCT-GLUCOSE [id number] 13:29:00 Test Item Value Reference Range Comments POC-GLUCOSE METER (BEAKER) 57 mg/dL 70-110 TESTED AT [address] (test nbik=3536) [facility] [address] POCT-GLUCOSE [id number] 13:28:00 Test Item Value Reference Range Comments POC-GLUCOSE METER (BEAKER) 162 mg/dL 70-110 TESTED AT [address] (test bfqb=4957) [facility] [address] POCT-GLUCOSE [id number] 09:08:00 Test Item Value Reference Range Comments POC-GLUCOSE METER (BEAKER) 226 mg/dL 70-110 TESTED AT [address] (test zdok=4257) [facility] [address] [id number] 04:50:00 Test Item Value Reference Range Comments MAGNESIUM (BEAKER) (test hptu=282) 1.7 mg/dL 1.6-2.6 BASIC METABOLIC [id number] 04:50:00 Test Item Value Reference Range Comments SODIUM (BEAKER) (test 133 meq/L 136-145 hqra=470) POTASSIUM (BEAKER) (test 3.9 meq/L 3.5-5.1 kszh=816) CHLORIDE (BEAKER) (test 98 meq/L 98-107 ybjr=831) CO2 (BEAKER) (test 23 meq/L 22-29 vjkv=816) BLOOD UREA NITROGEN 21 mg/dL 7-21 (BEAKER) (test ciob=926) CREATININE (BEAKER) (test 1.03 mg/dL 0.57-1.25 mtjv=290) GLUCOSE RANDOM (BEAKER) 207 mg/dL 70-105 (test ivvh=272) CALCIUM (BEAKER) (test 9.3 mg/dL 8.4-10.2 ulks=257) EGFR (BEAKER) (test 71 mL/min/1.73 sq m ESTIMATED GFR IS NOT epzr=0632) ACCURATE CREATININE CLEARANCE IN PREDICTING GLOMERULAR FILTRATION RATE. ESTIMATED GFR IS NOT APPLICABLE FOR DIALYSIS PATIENTS. CBC (HEMOGRAM ONLY)2016-07-22 04:49:00 Test Item Value Reference Range Comments WHITE BLOOD CELL COUNT (BEAKER) (test uafz=380) 8.5 K/ L 4.0-10.0 RED BLOOD CELL COUNT (BEAKER) (test zadq=245) 3.95 M/ L 4.00-5.00 HEMOGLOBIN (BEAKER) (test mhha=026) 12.1 GM/DL 12.0-15.0 HEMATOCRIT (BEAKER) (test nmmz=776) 34.8 % 36.0-45.0 MEAN CORPUSCULAR VOLUME (BEAKER) (test pxaj=316) 88.1 fL 82.0-99.0 MEAN CORPUSCULAR HEMOGLOBIN (BEAKER) (test 30.8 pg 27.0-33.0 hwqv=916) MEAN CORPUSCULAR HEMOGLOBIN CONC (BEAKER) (test 34.9 GM/DL 32.0-36.0 yrht=116) RED CELL DISTRIBUTION WIDTH (BEAKER) (test 12.6 % 10.3-14.2 czad=049) PLATELET COUNT (BEAKER) (test pfli=798) 160 K/CU MM 150-430 MEAN PLATELET VOLUME (BEAKER) (test iqik=920) 7.8 fL 6.5-10.5 NUCLEATED RED BLOOD CELLS (BEAKER) (test 0 /100 WBC 0-0 vhir=220) [id number] 04:47:00 Test Item Value Reference Range Comments PARTIAL THROMBOPLASTIN TIME (BEAKER) (test 73.7 seconds 22.5-36.0 iqhp=275) POCT-GLUCOSE [id number] 22:19:00 Test Item Value Reference Range Comments POC-GLUCOSE METER (BEAKER) 158 mg/dL 70-110 TESTED AT [address] (test svtu=7490) [facility] [address] POCT-GLUCOSE [id number] 18:05:00 Test Item Value Reference Range Comments POC-GLUCOSE METER (BEAKER) 210 mg/dL 70-110 TESTED AT [address] (test abjw=6948) [facility] [address] POCT-GLUCOSE [id number] 13:06:00 Test Item Value Reference Range Comments POC-GLUCOSE METER (BEAKER) 238 mg/dL 70-110 TESTED AT [address] (test ancs=1834) [facility] [address] PLATELET AGGREGATION: DRUG [id number] 12:32:00 Test Item Value Reference Range Comments STRONG ADP RESULT(BEAKER) (test 83 % 70-94 imur=6863) WEAK ADP RESULT(BEAKER) (test 70 % 60-91 vlce=2210) ARACHADONIC ACID RESULT(BEAKER) 17 % 63-89 (test ldzm=0888) PLATELET AGG DRUG INTERPRETATION Decreased response to (BEAKER) (test lkse=0215) arachidonic acid suggests aspirin-like effect. IULS-PMOTBNNTVIY-3449 (BEAKER) Howie Love MD (electronic (test anex=6863) signature) PLATELET COUNT AGG (BEAKER) 157 K/CU MM 150-430 (test bdkb=8296) Platelet aggregation results may be falsely low with platelet counts<100,000/ CU MM.POCT-GLUCOSE [id number] 08:17:00 Test Item Value Reference Range Comments POC-GLUCOSE METER (BEAKER) 245 mg/dL 70-110 TESTED AT [address] (test kflh=1191) [facility] [address] POCT-GLUCOSE [id number] 06:31:00 Test Item Value Reference Range Comments POC-GLUCOSE METER (BEAKER) 187 mg/dL 70-110 TESTED AT [address] (test cpfv=5184) [facility] [address] VANCOMYCIN LEVEL, [id number] 06:02:00 Test Item Value Reference Range Comments VANCOMYCIN TROUGH (BEAKER) (test vwsg=650) 17.1 ug/mL 10.0-20.0 POCT-GLUCOSE [id number] 05:31:00 Test Item Value Reference Range Comments POC-GLUCOSE METER (BEAKER) 167 mg/dL 70-110 TESTED AT [address] (test ddqc=8314) [facility] [address] POCT-GLUCOSE [id number] 05:25:00 Test Item Value Reference Range Comments POC-GLUCOSE METER (BEAKER) 155 mg/dL 70-110 TESTED AT [address] (test mvcg=1383) [facility] [address] POCT-GLUCOSE [id number] 05:03:00 Test Item Value Reference Range Comments POC-GLUCOSE METER (BEAKER) 205 mg/dL 70-110 TESTED AT [address] (test aeks=2106) [facility] [address] POCT-GLUCOSE [id number] 05:01:00 Test Item Value Reference Range Comments POC-GLUCOSE METER (BEAKER) 191 mg/dL 70-110 TESTED AT [facility] [address] [facility] (test hmgi=0180) [facility] [address] BASIC METABOLIC [id number] 04:30:00 Test Item Value Reference Range Comments SODIUM (BEAKER) (test 134 meq/L 136-145 jvlj=323) POTASSIUM (BEAKER) (test 3.7 meq/L 3.5-5.1 lyin=486) CHLORIDE (BEAKER) (test 100 meq/L 98-107 hxsy=302) CO2 (BEAKER) (test 25 meq/L 22-29 sgox=773) BLOOD UREA NITROGEN 21 mg/dL 7-21 (BEAKER) (test eqsz=545) CREATININE (BEAKER) (test 1.12 mg/dL 0.57-1.25 xlvv=275) GLUCOSE RANDOM (BEAKER) 194 mg/dL 70-105 (test oukx=866) CALCIUM (BEAKER) (test 9.1 mg/dL 8.4-10.2 yrsz=516) EGFR (BEAKER) (test 65 mL/min/1.73 sq m ESTIMATED GFR IS NOT inud=3414) ACCURATE CREATININE CLEARANCE IN PREDICTING GLOMERULAR FILTRATION RATE. ESTIMATED GFR IS NOT APPLICABLE FOR DIALYSIS PATIENTS. [id number] 04:30:00 Test Item Value Reference Range Comments MAGNESIUM (BEAKER) (test xuou=964) 2.0 mg/dL 1.6-2.6 [id number] 02:58:00 Test Item Value Reference Range Comments PARTIAL THROMBOPLASTIN TIME (BEAKER) (test 83.2 seconds 22.5-36.0 cods=115) CBC (HEMOGRAM ONLY)2016-07-21 02:53:00 Test Item Value Reference Range Comments WHITE BLOOD CELL COUNT (BEAKER) (test wdgq=250) 10.1 K/ L 4.0-10.0 RED BLOOD CELL COUNT (BEAKER) (test cugk=485) 3.91 M/ L 4.00-5.00 HEMOGLOBIN (BEAKER) (test rwwt=811) 12.0 GM/DL 12.0-15.0 HEMATOCRIT (BEAKER) (test apgb=555) 34.3 % 36.0-45.0 MEAN CORPUSCULAR VOLUME (BEAKER) (test jkjt=523) 87.8 fL 82.0-99.0 MEAN CORPUSCULAR HEMOGLOBIN (BEAKER) (test 30.6 pg 27.0-33.0 calc=483) MEAN CORPUSCULAR HEMOGLOBIN CONC (BEAKER) (test 34.8 GM/DL 32.0-36.0 qohu=254) RED CELL DISTRIBUTION WIDTH (BEAKER) (test 14.1 % 10.3-14.2 iazl=990) PLATELET COUNT (BEAKER) (test eotc=748) 154 K/CU MM 150-430 BASIC METABOLIC [id number] 16:39:00 Test Item Value Reference Range Comments SODIUM (BEAKER) (test 136 meq/L 136-145 mmmw=417) POTASSIUM (BEAKER) (test 3.7 meq/L 3.5-5.1 mcgj=589) CHLORIDE (BEAKER) (test 103 meq/L 98-107 ppxq=466) CO2 (BEAKER) (test 23 meq/L 22-29 xkol=512) BLOOD UREA NITROGEN 20 mg/dL 7-21 (BEAKER) (test cjew=797) CREATININE (BEAKER) (test 1.03 mg/dL 0.57-1.25 ramk=968) GLUCOSE RANDOM (BEAKER) 190 mg/dL 70-105 (test zzpy=410) CALCIUM (BEAKER) (test 8.6 mg/dL 8.4-10.2 auxo=329) EGFR (BEAKER) (test 71 mL/min/1.73 sq m ESTIMATED GFR IS NOT fbbv=2267) ACCURATE CREATININE CLEARANCE IN PREDICTING GLOMERULAR FILTRATION RATE. ESTIMATED GFR IS NOT APPLICABLE FOR DIALYSIS PATIENTS. [id number] 16:39:00 Test Item Value Reference Range Comments MAGNESIUM (BEAKER) (test jbbf=510) 1.6 mg/dL 1.6-2.6 [id number] 11:08:00 Test Item Value Reference Range Comments PARTIAL THROMBOPLASTIN TIME (BEAKER) (test 78.7 seconds 22.5-36.0 uvzf=717) CBC (HEMOGRAM ONLY)2016-07-20 03:48:00 Test Item Value Reference Range Comments WHITE BLOOD CELL COUNT (BEAKER) (test pelf=391) 9.5 K/ L 4.0-10.0 RED BLOOD CELL COUNT (BEAKER) (test aafb=501) 3.57 M/ L 4.00-5.00 HEMOGLOBIN (BEAKER) (test bton=633) 11.4 GM/DL 12.0-15.0 HEMATOCRIT (BEAKER) (test wjke=249) 31.7 % 36.0-45.0 MEAN CORPUSCULAR VOLUME (BEAKER) (test xhdd=230) 88.7 fL 82.0-99.0 MEAN CORPUSCULAR HEMOGLOBIN (BEAKER) (test 31.9 pg 27.0-33.0 bobb=129) MEAN CORPUSCULAR HEMOGLOBIN CONC (BEAKER) (test 35.9 GM/DL 32.0-36.0 yukb=189) RED CELL DISTRIBUTION WIDTH (BEAKER) (test 12.7 % 10.3-14.2 pypn=792) PLATELET COUNT (BEAKER) (test vodv=765) 169 K/CU MM 150-430 MEAN PLATELET VOLUME (BEAKER) (test pitq=608) 8.0 fL 6.5-10.5 [id number] 03:02:00 Test Item Value Reference Range Comments PARTIAL THROMBOPLASTIN TIME (BEAKER) (test 69.1 seconds 22.5-36.0 igcu=618) [id number] 18:12:00 Test Item Value Reference Range Comments PARTIAL THROMBOPLASTIN TIME (BEAKER) (test 64.0 seconds 22.5-36.0 xdus=537) HEMOGLOBIN [id number] 14:16:00 Test Item Value Reference Range Comments HEMOGLOBIN A1C (BEAKER) (test zjcx=136) 9.2 % 4.3-6.1 CBC (HEMOGRAM ONLY)2016-07-19 11:05:00 Test Item Value Reference Range Comments WHITE BLOOD CELL COUNT (BEAKER) (test euqo=130) 6.9 K/ L 4.0-10.0 RED BLOOD CELL COUNT (BEAKER) (test yonl=160) 4.60 M/ L 4.00-5.00 HEMOGLOBIN (BEAKER) (test oevi=468) 14.3 GM/DL 12.0-15.0 HEMATOCRIT (BEAKER) (test jjst=476) 40.6 % 36.0-45.0 MEAN CORPUSCULAR VOLUME (BEAKER) (test ugbk=063) 88.4 fL 82.0-99.0 MEAN CORPUSCULAR HEMOGLOBIN (BEAKER) (test 31.1 pg 27.0-33.0 kuio=806) MEAN CORPUSCULAR HEMOGLOBIN CONC (BEAKER) (test 35.2 GM/DL 32.0-36.0 uwyb=611) RED CELL DISTRIBUTION WIDTH (BEAKER) (test 12.8 % 10.3-14.2 ehoq=531) PLATELET COUNT (BEAKER) (test bwjq=839) 157 K/CU MM 150-430 MEAN PLATELET VOLUME (BEAKER) (test ivxc=130) 8.2 fL 6.5-10.5 NUCLEATED RED BLOOD CELLS (BEAKER) (test 0 /100 WBC 0-0 wymd=829) [id number] 10:54:00 Test Item Value Reference Range Comments PARTIAL THROMBOPLASTIN TIME (BEAKER) (test 63.0 seconds 22.5-36.0 llht=552) [id number] 04:55:00 Test Item Value Reference Range Comments MAGNESIUM (BEAKER) (test yvsp=678) 1.5 mg/dL 1.6-2.6 BASIC METABOLIC [id number] 04:55:00 Test Item Value Reference Range Comments SODIUM (BEAKER) (test 134 meq/L 136-145 egfs=141) POTASSIUM (BEAKER) (test 4.6 meq/L 3.5-5.1 xpse=667) CHLORIDE (BEAKER) (test 107 meq/L 98-107 jfjl=525) CO2 (BEAKER) (test 20 meq/L 22-29 eurj=793) BLOOD UREA NITROGEN 16 mg/dL 7-21 (BEAKER) (test jyhe=341) CREATININE (BEAKER) (test 1.17 mg/dL 0.57-1.25 mdgi=165) GLUCOSE RANDOM (BEAKER) 177 mg/dL 70-105 (test cdwc=692) CALCIUM (BEAKER) (test 8.3 mg/dL 8.4-10.2 opeu=005) EGFR (BEAKER) (test 61 mL/min/1.73 sq m ESTIMATED GFR IS NOT sodp=3340) ACCURATE CREATININE CLEARANCE IN PREDICTING GLOMERULAR FILTRATION RATE. ESTIMATED GFR IS NOT APPLICABLE FOR DIALYSIS PATIENTS. [id number] 04:40:00 Test Item Value Reference Range Comments PARTIAL THROMBOPLASTIN TIME (BEAKER) (test 67.6 seconds 22.5-36.0 snun=521) TSH/FREE T4 IF [id number] 03:39:00 Test Item Value Reference Range Comments THYROID STIMULATING HORMONE (BEAKER) (test 0.87 uIU/mL 0.35-4.94 absb=588) SCREEN, [id number] 02:00:00 Test Item Value Reference Range Comments TEST URINE (BEAKER) (test htcx=477) Negative URINALYSIS W/ [id number] 01:59:00 Test Item Value Reference Range Comments COLOR (BEAKER) (test mmez=364) Yellow CLARITY (BEAKER) (test latx=273) Clear SPECIFIC GRAVITY UA (BEAKER) (test ekbw=549) 1.035 1.001-1.035 PH UA (BEAKER) (test jtbb=535) 6.0 5.0-8.0 PROTEIN UA (BEAKER) (test gesd=252) 30 mg/dL Negative GLUCOSE UA (BEAKER) (test fphd=426) Negative Negative KETONES UA (BEAKER) (test ijrd=384) Negative Negative BILIRUBIN UA (BEAKER) (test hjmk=755) Negative Negative BLOOD UA (BEAKER) (test ilrp=568) Small Negative NITRITE UA (BEAKER) (test pfcq=185) Negative Negative LEUKOCYTE ESTERASE UA (BEAKER) (test gkup=217) Moderate Negative UROBILINOGEN UA (BEAKER) (test klxo=209) 3.0 mg/dL 0.2-1.0 RBC UA (BEAKER) (test pvub=091) 2 /HPF WBC UA (BEAKER) (test gldz=974) 17 /HPF MUCUS (BEAKER) (test dtyj=4393) Rare SQUAMOUS EPITHELIAL (BEAKER) (test fsvn=626) < /HPF SOURCE(BEAKER) (test mruc=2435) RAPID DRUG SCREEN, [id number] 01:55:00 Test Item Value Reference Range Comments BARBITURATE URINE (BEAKER) (test sgqq=365) Negative Negative BENZODIAZEPINE SCREEN URINE (BEAKER) (test Positive Negative kgwo=549) COCAINE (METAB.) SCREEN (BEAKER) (test xusn=1581) Negative Negative METHADONE SCREEN (BEAKER) (test wjmj=1754) Negative Negative OPIATE SCREEN URINE (BEAKER) (test nfkn=492) Positive Negative CANNABINOID SCREEN URINE (BEAKER) (test dyem=602) Negative Negative AMPH/METHAMPH SCREEN (BEAKER) (test ovpz=7829) Negative Negative PHENCYCLIDINE SCREEN URINE (BEAKER) (test xnyy=880) Negative Negative OXYCODONE SCREEN URINE (BEAKER) (test bttm=5463) Negative Negative DRUG CUTOFF CONC.Cocaine 300 ng/mL Cannabinoid 50 ng/mL Benzodiazepine 200 ng/mLBarbiturate 200 ng/ mLPhencyclidine 25 ng/mLOpiate 300 ng/mLMethadone 300 ng/mLAmphetamine/ 1000 ng/mL MethamphetamineOxycodone 300 ng/mLHIV-1 ANTIGEN WITH HIV-1/2 [id number] 01:32:00 Test Item Value Reference Range Comments HIV-1 ANTIGEN WITH HIV 1\\T\\2 ANTIBODY (2) Nonreactive Nonreactive (BEAKER) (test wxgy=5486) POCT-GLUCOSE [id number] 01:24:00 Test Item Value Reference Range Comments POC-GLUCOSE METER (BEAKER) 181 mg/dL 70-110 TESTED AT [facility] [address] [facility] (test xjln=1607) [facility] [address] COMPREHENSIVE METABOLIC [id number] 01:13:00 Test Item Value Reference Range Comments TOTAL PROTEIN (BEAKER) 6.3 gm/dL 6.0-8.3 (test nvmb=826) ALBUMIN (BEAKER) (test 3.0 g/dL 3.5-5.0 oden=9589) ALKALINE PHOSPHATASE 72 U/L 40-150 (BEAKER) (test yplp=087) BILIRUBIN TOTAL (BEAKER) 0.8 mg/dL 0.2-1.2 (test iato=501) SODIUM (BEAKER) (test 137 meq/L 136-145 shos=901) POTASSIUM (BEAKER) (test 3.4 meq/L 3.5-5.1 kpmh=772) CHLORIDE (BEAKER) (test 104 meq/L 98-107 dlwl=370) CO2 (BEAKER) (test 23 meq/L 22-29 isfl=195) BLOOD UREA NITROGEN 14 mg/dL 7-21 (BEAKER) (test cwkv=106) CREATININE (BEAKER) (test 0.92 mg/dL 0.57-1.25 bytv=939) GLUCOSE RANDOM (BEAKER) 52 mg/dL 70-105 (test naaf=691) CALCIUM (BEAKER) (test 8.5 mg/dL 8.4-10.2 zgso=956) AST (SGOT) (BEAKER) (test 19 U/L 5-34 ktmi=167) ALT (SGPT) (BEAKER) (test 13 U/L 6-55 uixz=713) EGFR (BEAKER) (test 81 mL/min/1.73 sq m ESTIMATED GFR IS NOT wtoa=8612) ACCURATE CREATININE CLEARANCE IN PREDICTING GLOMERULAR FILTRATION RATE. ESTIMATED GFR IS NOT APPLICABLE FOR DIALYSIS PATIENTS. [id number] 00:59:00 Test Item Value Reference Range Comments PARTIAL THROMBOPLASTIN TIME (BEAKER) (test 45.1 seconds 22.5-36.0 eecp=608) Prior to initiating heparinPLATELET [id number] 00:51:00 Test Item Value Reference Range Comments PLATELET COUNT (BEAKER) (test kahm=696) 211 K/CU MM 150-430 CBC W/PLT COUNT & AUTO [id number] 00:51:00 Test Item Value Reference Range Comments WHITE BLOOD CELL COUNT (BEAKER) (test kkvs=546) 9.2 K/ L 4.0-10.0 RED BLOOD CELL COUNT (BEAKER) (test cauq=384) 3.79 M/ L 4.00-5.00 HEMOGLOBIN (BEAKER) (test prsd=961) 11.3 GM/DL 12.0-15.0 HEMATOCRIT (BEAKER) (test xvxa=025) 33.2 % 36.0-45.0 MEAN CORPUSCULAR VOLUME (BEAKER) (test wvvm=435) 87.6 fL 82.0-99.0 MEAN CORPUSCULAR HEMOGLOBIN (BEAKER) (test 29.9 pg 27.0-33.0 niba=296) MEAN CORPUSCULAR HEMOGLOBIN CONC (BEAKER) (test 34.2 GM/DL 32.0-36.0 tuxs=895) RED CELL DISTRIBUTION WIDTH (BEAKER) (test 14.6 % 10.3-14.2 rpzd=631) PLATELET COUNT (BEAKER) (test hptb=009) 211 K/CU MM 150-430 MEAN PLATELET VOLUME (BEAKER) (test bcda=368) 8.8 fL 6.5-10.5 NUCLEATED RED BLOOD CELLS (BEAKER) (test 0 /100 WBC 0-0 xpoh=299) NEUTROPHILS RELATIVE PERCENT (BEAKER) (test 60 % jqmd=132) LYMPHOCYTES RELATIVE PERCENT (BEAKER) (test 26 % twev=762) MONOCYTES RELATIVE PERCENT (BEAKER) (test 12 % xvlt=652) EOSINOPHILS RELATIVE PERCENT (BEAKER) (test 2 % iume=897) BASOPHILS RELATIVE PERCENT (BEAKER) (test 1 % yrkf=753) NEUTROPHILS ABSOLUTE COUNT (BEAKER) (test 5.45 K/ L 1.80-8.00 mkcn=432) LYMPHOCYTES ABSOLUTE COUNT (BEAKER) (test 2.36 K/ L 1.48-4.50 qqhp=705) MONOCYTES ABSOLUTE COUNT (BEAKER) (test 1.10 K/ L 0.00-1.30 llca=250) EOSINOPHILS ABSOLUTE COUNT (BEAKER) (test 0.18 K/ L 0.00-0.50 qisu=886) BASOPHILS ABSOLUTE COUNT (BEAKER) (test 0.08 K/ L 0.00-0.20 jjfn=135) POCT-GLUCOSE [id number] 19:29:00 Test Item Value Reference Range Comments POC-GLUCOSE METER (BEAKER) 165 mg/dL 70-110 TESTED AT [facility] (test irtk=3698) [place] [address] [id number] 17:32:00 Test Item Value Reference Range Comments PROTIME (BEAKER) (test wnqa=213) 11.8 seconds 9.8-12.0 INR (BEAKER) (test jvxu=505) 1.1 <=5.9 PARTIAL THROMBOPLASTIN TIME (BEAKER) (test 54.3 seconds 25.8-34.5 wklx=438) RECOMMENDED COUMADIN/WARFARIN INR THERAPY RANGESSTANDARD DOSE: 2.0 - 3.0 Includes: PROPHYLAXIS forvenous thrombosis, systemic embolization; TREATMENT for venous thrombosis and/or pulmonary embolus.HIGH RISK: Target INR is 2.5-3.5 for patients with mechanical heart valves.POCT-GLUCOSE [id number] 16:49:00 Test Item Value Reference Range Comments POC-GLUCOSE METER (BEAKER) 155 mg/dL 70-110 TESTED AT [facility] (test vclu=1501) [place] [address] [id number] 13:04:00 Test Item Value Reference Range Comments ACTIVATED CLOTTING TIME 111 sec TESTED AT [facility] (BEAKER) (test hsww=001) [place] [address] POCT-GLUCOSE [id number] 11:02:00 Test Item Value Reference Range Comments POC-GLUCOSE METER (BEAKER) 155 mg/dL 70-110 TESTED AT [facility] (test ucid=1270) [place] [address] POCT-GLUCOSE [id number] 07:44:00 Test Item Value Reference Range Comments POC-GLUCOSE METER (BEAKER) 132 mg/dL 70-110 TESTED AT [facility] (test jvwr=9148) [place] [address] TROPONIN [id number] 06:31:00 Test Item Value Reference Range Comments TROPONIN I (BEAKER) (test xloy=855) 0.39 ng/mL 0.00-0.15 Troponin I (TnI) levels must be interpreted in the context of the presenting symptoms and the clinical findings. Elevated TnI levels indicate myocardial damage, but are not specific for ischemic heart disease. Elevated TnI levels are seen in patients with other cardiac conditions (including myocarditis and congestive heart failure), and slight TnI elevations occur in patients with other conditions, including sepsis, renal failure, acidosis, acute neurological disease, and persistent tachyarrhythmia.[id number] 06:22:00 Test Item Value Reference Range Comments PARTIAL THROMBOPLASTIN TIME (BEAKER) (test 47.8 seconds 25.8-34.5 jmwe=334) BASIC METABOLIC [id number] 06:21:00 Test Item Value Reference Range Comments SODIUM (BEAKER) (test 137 meq/L 135-148 gbsm=804) POTASSIUM (BEAKER) (test 3.6 meq/L 3.6-5.5 akpt=392) CHLORIDE (BEAKER) (test 103 meq/L 98-106 fpib=936) CO2 (BEAKER) (test 22 meq/L 20-29 ffyp=695) BLOOD UREA NITROGEN 18 mg/dL 10-26 (BEAKER) (test nqjj=492) CREATININE (BEAKER) (test 1.13 mg/dL 0.50-1.20 gnkg=434) GLUCOSE RANDOM (BEAKER) 90 mg/dL 70-110 (test vsix=537) CALCIUM (BEAKER) (test 9.0 mg/dL 8.5-10.5 tuem=423) EGFR (BEAKER) (test 64 mL/min/1.73 sq m ESTIMATED GFR IS NOT xpwt=0343) ACCURATE CREATININE CLEARANCE IN PREDICTING GLOMERULAR FILTRATION RATE. ESTIMATED GFR IS NOT APPLICABLE FOR DIALYSIS PATIENTS. LIPID [id number] 06:21:00 Test Item Value Reference Range Comments TRIGLYCERIDES (BEAKER) (test vrbr=538) 102 mg/dL CHOLESTEROL (BEAKER) (test ngcb=182) 192 mg/dL HDL CHOLESTEROL (BEAKER) (test lipc=370) 37 mg/dL LDL CHOLESTEROL CALCULATED (BEAKER) (test 135 mg/dL dhmb=534) Triglyceride Reference Range: Low Risk <150 Borderline 150- 199 High Risk 200-499 Very High Risk >=500Cholesterol Reference Range: Low Risk <200 Borderline 200-239 High Risk > 240HDL Cholesterol Reference Range: Low Risk >=60 High Risk <40LDL Cholesterol Reference Range: Optimal <100 Near Optimal 100-129 Borderline 130-159 High 160-189 Very High >=190CBC W/PLT COUNT & AUTO [id number] 06:06:00 Test Item Value Reference Range Comments WHITE BLOOD CELL COUNT (BEAKER) (test lbzk=868) 10.1 K/ L 4.0-10.0 RED BLOOD CELL COUNT (BEAKER) (test ujja=925) 3.80 M/ L 4.00-5.00 HEMOGLOBIN (BEAKER) (test totk=587) 11.6 GM/DL 12.0-15.0 HEMATOCRIT (BEAKER) (test nqme=005) 32.0 % 36.0-45.0 MEAN CORPUSCULAR VOLUME (BEAKER) (test lenp=938) 84.2 fL 82.0-99.0 MEAN CORPUSCULAR HEMOGLOBIN (BEAKER) (test 30.5 pg 27.0-33.0 twjd=540) MEAN CORPUSCULAR HEMOGLOBIN CONC (BEAKER) (test 36.3 GM/DL 32.0-36.0 zxlu=540) RED CELL DISTRIBUTION WIDTH (BEAKER) (test 13.5 % 10.3-14.2 bqil=389) PLATELET COUNT (BEAKER) (test dvjz=180) 240 K/CU MM 150-430 MEAN PLATELET VOLUME (BEAKER) (test egku=136) 10.3 fL 6.5-10.5 NUCLEATED RED BLOOD CELLS (BEAKER) (test 0 /100 WBC 0-0 sges=575) NEUTROPHILS RELATIVE PERCENT (BEAKER) (test 67 % aysz=807) LYMPHOCYTES RELATIVE PERCENT (BEAKER) (test 22 % hcdc=647) MONOCYTES RELATIVE PERCENT (BEAKER) (test 9 % tfcl=559) EOSINOPHILS RELATIVE PERCENT (BEAKER) (test 1 % txkk=324) BASOPHILS RELATIVE PERCENT (BEAKER) (test 1 % hfpo=398) NEUTROPHILS ABSOLUTE COUNT (BEAKER) (test 6.76 K/ L 1.80-8.00 hqkl=318) LYMPHOCYTES ABSOLUTE COUNT (BEAKER) (test 2.26 K/ L 1.48-4.50 xmwm=629) MONOCYTES ABSOLUTE COUNT (BEAKER) (test 0.87 K/ L 0.00-1.30 vgwt=480) EOSINOPHILS ABSOLUTE COUNT (BEAKER) (test 0.14 K/ L 0.00-0.50 lqlr=445) BASOPHILS ABSOLUTE COUNT (BEAKER) (test 0.07 K/ L 0.00-0.20 hviz=466) BLOOD GAS, [id number] 21:56:00 Test Item Value Reference Range Comments PH ARTERIAL (BEAKER) (test cvky=346) 7.51 7.35-7.45 PCO2 ARTERIAL (BEAKER) (test utuw=398) 30 mmHg 35-45 PO2 ARTERIAL (BEAKER) (test mqln=667) 94 mmHg 80-90 O2 SATURATION ARTERIAL (BEAKER) (test muaa=549) 97.6 % 96.0-97.0 HCO3 ARTERIAL (BEAKER) (test mhis=427) 24 mmol/L 21-29 BASE EXCESS ARTERIAL (BEAKER) (test qxsg=341) 0.7 mmol/L -2.0-3.0 PATIENT TEMPERATURE (BEAKER) (test rjgk=1892) 36.0 C [id number] 21:41:00 Test Item Value Reference Range Comments PROTIME (BEAKER) (test eoua=293) 11.3 seconds 9.8-12.0 INR (BEAKER) (test vtoc=657) 1.1 <=5.9 PARTIAL THROMBOPLASTIN TIME (BEAKER) (test 32.0 seconds 25.8-34.5 otmx=668) RECOMMENDED COUMADIN/WARFARIN INR THERAPY RANGESSTANDARD DOSE: 2.0 - 3.0 Includes: PROPHYLAXIS forvenous thrombosis, systemic embolization; TREATMENT for venous thrombosis and/or pulmonary embolus.HIGH RISK: Target INR is 2.5-3.5 for patients with mechanical heart valves.TROPONIN [id number] 21:33:00 Test Item Value Reference Range Comments TROPONIN I (BEAKER) (test phrg=323) 0.48 ng/mL 0.00-0.15 Troponin I (TnI) levels must be interpreted in the context of the presenting symptoms and the clinical findings. Elevated TnI levels indicate myocardial damage, but are not specific for ischemic heart disease. Elevated TnI levels are seen in patients with other cardiac conditions (including myocarditis and congestive heart failure), and slight TnI elevations occur in patients with other conditions, including sepsis, renal failure, acidosis, acute neurological disease, and persistent tachyarrhythmia.POCT-GLUCOSE [id number] 20:22:00 Test Item Value Reference Range Comments POC-GLUCOSE METER (BEAKER) 132 mg/dL 70-110 TESTED AT [facility] [id number] [place] [address] (test izqk=7380) [place] [address] POCT-GLUCOSE [id number] 18:00:00 Test Item Value Reference Range Comments POC-GLUCOSE METER (BEAKER) 92 mg/dL 70-110 TESTED AT [address] (test qnyl=3304) [place] [address] TROPONIN [id number] 16:36:00 Test Item Value Reference Range Comments TROPONIN I (BEAKER) (test msfu=683) 0.47 ng/mL 0.00-0.15 Troponin I (TnI) levels must be interpreted in the context of the presenting symptoms and the clinical findings. Elevated TnI levels indicate myocardial damage, but are not specific for ischemic heart disease. Elevated TnI levels are seen in patients with other cardiac conditions (including myocarditis and congestive heart failure), and slight TnI elevations occur in patients with other conditions, including sepsis, renal failure, acidosis, acute neurological disease, and persistent tachyarrhythmia.CREATINE KINASE (CK), TOTAL AND [id number] 16:26:00 Test Item Value Reference Range Comments CREATINE KINASE TOTAL (BEAKER) (test jeob=043) 143 U/L 25-235 CREATINE KINASE-MB (BEAKER) (test ujsd=291) 1.3 ng/mL 0.0-4.9 CREATINE KINASE-MB INDEX (BEAKER) (test ctmn=467) 0.9 % CK-MB Reference Range:<5 Normal5-10 Borderline>10 AbnormalPOCT-GLUCOSE [id number] 12:41:00 Test Item Value Reference Range Comments POC-GLUCOSE METER (BEAKER) 125 mg/dL 70-110 TESTED AT [facility] (test izbn=8137) [place] [address] PROTHROMBIN [id number] 10:47:00 Test Item Value Reference Range Comments PROTIME (BEAKER) (test kbex=043) 11.0 seconds 9.8-12.0 INR (BEAKER) (test udbw=795) 1.0 <=5.9 RECOMMENDED COUMADIN/WARFARIN INR THERAPY RANGESSTANDARD DOSE: 2.0 - 3.0 Includes: PROPHYLAXIS forvenous thrombosis, systemic embolization; TREATMENT for venous thrombosis and/or pulmonary embolus.HIGH RISK: Target INR is 2.5-3.5 for patients with mechanical heart valves. SCREEN, [id number] 10: 23:00 Test Item Value Reference Range Comments TEST URINE (BEAKER) (test ngmj=310) Negative TROPONIN [id number] 09:59:00 Test Item Value Reference Range Comments TROPONIN I (BEAKER) (test vusn=863) 0.41 ng/mL 0.00-0.15 Troponin I (TnI) levels must be interpreted in the context of the presenting symptoms and the clinical findings. Elevated TnI levels indicate myocardial damage, but are not specific for ischemic heart disease. Elevated TnI levels are seen in patients with other cardiac conditions (including myocarditis and congestive heart failure), and slight TnI elevations occur in patients with other conditions, including sepsis, renal failure, acidosis, acute neurological disease, and persistent tachyarrhythmia.B-TYPE NATRIURETIC FACTOR (BNP) 09:59:00 Test Item Value Reference Range Comments B-TYPE NATRIURETIC PEPTIDE (BEAKER) (test 1720 pg/mL 0-100 ufcc=255) COMPREHENSIVE METABOLIC [id number] 09:54:00 Test Item Value Reference Range Comments TOTAL PROTEIN (BEAKER) 7.2 gm/dL 6.0-8.5 (test ofci=372) ALBUMIN (BEAKER) (test 3.6 g/dL 3.5-5.0 inrh=5062) ALKALINE PHOSPHATASE 79 U/L 30-115 (BEAKER) (test jwge=602) BILIRUBIN TOTAL (BEAKER) 0.7 mg/dL 0.1-1.2 (test pymk=340) SODIUM (BEAKER) (test 138 meq/L 135-148 nceu=530) POTASSIUM (BEAKER) (test 4.0 meq/L 3.6-5.5 sfrj=196) CHLORIDE (BEAKER) (test 104 meq/L 98-106 wxjt=945) CO2 (BEAKER) (test 23 meq/L 20-29 uadd=447) BLOOD UREA NITROGEN 14 mg/dL 10-26 (BEAKER) (test jcop=079) CREATININE (BEAKER) (test 0.87 mg/dL 0.50-1.20 xvnv=320) GLUCOSE RANDOM (BEAKER) 146 mg/dL 70-110 (test scdt=707) CALCIUM (BEAKER) (test 9.2 mg/dL 8.5-10.5 gvzc=821) AST (SGOT) (BEAKER) (test 13 U/L 5-40 tyaq=977) ALT (SGPT) (BEAKER) (test 15 U/L 5-50 tkpc=157) EGFR (BEAKER) (test 87 mL/min/1.73 sq m ESTIMATED GFR IS NOT mcio=9580) ACCURATE CREATININE CLEARANCE IN PREDICTING GLOMERULAR FILTRATION RATE. ESTIMATED GFR IS NOT APPLICABLE FOR DIALYSIS PATIENTS. [id number] 09:53:00 Test Item Value Reference Range Comments D-DIMER QUANTITATIVE (BEAKER) (test useq=437) 1.46 MG/L FEU <0.50 REGARDING D-DIMER RESULTS: The 98% NPV (Negative Predictive Value) for DVT/PE exclusion is 0.50 mg/LFEU as suggested by the disposal worker and as approved by the FDA.CBC W/PLT COUNT & AUTO [id number] 09:36:00 Test Item Value Reference Range Comments WHITE BLOOD CELL COUNT (BEAKER) (test uzwd=383) 6.8 K/ L 4.0-10.0 RED BLOOD CELL COUNT (BEAKER) (test apyx=003) 3.88 M/ L 4.00-5.00 HEMOGLOBIN (BEAKER) (test bqhj=224) 11.8 GM/DL 12.0-15.0 HEMATOCRIT (BEAKER) (test fxdu=260) 32.8 % 36.0-45.0 MEAN CORPUSCULAR VOLUME (BEAKER) (test cwnu=356) 84.5 fL 82.0-99.0 MEAN CORPUSCULAR HEMOGLOBIN (BEAKER) (test 30.4 pg 27.0-33.0 lyho=603) MEAN CORPUSCULAR HEMOGLOBIN CONC (BEAKER) (test 36.0 GM/DL 32.0-36.0 qjhs=551) RED CELL DISTRIBUTION WIDTH (BEAKER) (test 13.5 % 10.3-14.2 lfdh=737) PLATELET COUNT (BEAKER) (test opum=930) 272 K/CU MM 150-430 MEAN PLATELET VOLUME (BEAKER) (test pfcs=837) 10.1 fL 6.5-10.5 NUCLEATED RED BLOOD CELLS (BEAKER) (test 0 /100 WBC 0-0 ufsv=216) NEUTROPHILS RELATIVE PERCENT (BEAKER) (test 55 % qxot=276) LYMPHOCYTES RELATIVE PERCENT (BEAKER) (test 31 % lyuw=954) MONOCYTES RELATIVE PERCENT (BEAKER) (test 12 % yxik=456) EOSINOPHILS RELATIVE PERCENT (BEAKER) (test 1 % vbwf=302) BASOPHILS RELATIVE PERCENT (BEAKER) (test 1 % xatd=795) NEUTROPHILS ABSOLUTE COUNT (BEAKER) (test 3.75 K/ L 1.80-8.00 pdgz=998) LYMPHOCYTES ABSOLUTE COUNT (BEAKER) (test 2.11 K/ L 1.48-4.50 gssd=303) MONOCYTES ABSOLUTE COUNT (BEAKER) (test 0.81 K/ L 0.00-1.30 aqan=077) EOSINOPHILS ABSOLUTE COUNT (BEAKER) (test 0.08 K/ L 0.00-0.50 ycvp=021) BASOPHILS ABSOLUTE COUNT (BEAKER) (test 0.06 K/ L 0.00-0.20 obsa=468)
[2018-10-01 07:40] LABS: Specific Gravity 1.015 (1.005-1.030)
[2018-10-01] MEDS ORDERED: NA CHLORIDE 0.9% 1,000 ML ONE (07:41)
[2018-10-01] MEDS ORDERED: CEFOXITIN/SWI 1gm 1 GM/10 ML SYR ONE (07:59)
[2018-10-01] MEDS: INSULIN -REGULAR HUMAN 50 UNIT/0.5 ML ML ONE ×3 (08:05→08:21)
[2018-10-01] MEDS ORDERED: FENTANYL CITR 100 MCG/2 ML ONE (08:25)
[2018-10-01] MEDS ORDERED: MIDAZOLAM HCL 2 MG/2 ML INJ ONE (08:25)
[2018-10-01] MEDS ORDERED: PROPOFOL 200 MG/20 ML VIAL IV ONE (08:25)
[2018-10-01] MEDS ORDERED: LIDOCAINE 2% MPF 5 ML VIAL ONE (08:26)
[2018-10-01] MEDS ORDERED: ONDANSETRON 4 MG/2 ML VIAL ONE (08:39)
--- NOTE | 2018-10-01 09:02 | P.BOP ---
Preoperative diagnosis: diabetes, abdominal wall abscess, cellullitis Postoperative diagnosis: same Primary procedure: Incision and drainage with subQ debridement of complex abd wall abscess Estimated blood loss: <20cc Specimen: cult Findings: as above Anesthesia: General Complications: None Transferred to: Recovery Room Condition: Good
[2018-10-01] MEDS ORDERED: NA CHLORIDE 0.9% 500 ML ONE (09:53)
--- NOTE | 2018-10-01 09:59 | OP ---
Date of Procedure: 10/01/2018 Surgeon: Jacoby Whyte MD Preoperative Diagnoses: Diabetes, abdominal wall abscess, and cellulitis. Postoperative Diagnoses: Diabetes, abdominal wall abscess, and cellulitis. Procedure: Incision and drainage with subcutaneous debridement of a complex abdominal wall abscess, 5 x 5 cm. Specimens: Culture and findings multiple loculations with a necrotic fat. Anesthesia: General plus local. Indications: This is a case of a 42-year-old patient, on insulin pump. Placed the insulin pump on t he right abdomen like she has been doing for the last few years, but this time she noticed something different with cellulitis present, redness, tenderness, induration, came to the ER office, diagnosed with abscess and cellulitis. Explained the need for incision and drainage and debridement over the t issues involved in areas of about 5 x 5 cm. The benefits and risks were fully explained, which inclu de, but are not limited to infection, bleeding, damage to adjacent structures, anesthesia complicatio n, NV, and even . She also understands this may not relieve symptoms, she might need more than one surgical intervention. She understands that she will require wound care and signed a consent. Description Of Procedure: The patient was brought to the operating room, placed in supine position. Anesthesia was done without complication. Abdominal area was prepped and draped in the usual steril e fashion. Local anesthetic was applied after time-out was called. Incision was made. Patient is o n blood thinners for the cardiac disease, so we obtained and secured hemostasis at all time. When we removed the skin and necrotic tissue, we noticed multiple loculations and complex abscess, all were addressed, irrigated and then local anesthesia was applied and packed wet-to-dry dressing. Patient t olerated the procedure well. Patient was sent to recovery in stable condition. Disposition: Home. Activity: As tolerated. No heavy lifting. Wet-to-dry dressing. Normal saline daily. Patient alre simona has the antibiotics, so we are going to give her Tylenol No.3 for pain and normal saline bottle f or refill. RASHID/JOSE Voice ID: [id number] Report ID: [id number]
[2018-10-01] MEDS ORDERED: CODEINE 30MG/APAP 300MG TAB ONE (10:33)
== END 2018-10-01 12:05 | disposition home or self-care (01) ==
LOC: OR 07:19
PROVIDERS: ATTEND Surgery
PROC: 0J980ZZ Drainage of Abdomen Subcutaneous Tissue and Fascia, Open Approach (ICD-10-PCS; principal; 2018-10-01 08:45)
DX: L02.211 Cutaneous abscess of abdominal wall (principal); L03.311 Cellulitis of abdominal wall; E11.9 Type 2 diabetes mellitus without complications; I11.0 Hypertensive heart disease with heart failure; I50.9 Heart failure, unspecified; I25.10 Atherosclerotic heart disease of native coronary artery without angina pectoris; I25.2 Old myocardial infarction; Z79.4 Long term (current) use of insulin; Z79.01 Long term (current) use of anticoagulants; Z79.82 Long term (current) use of aspirin; Z95.1 Presence of aortocoronary bypass graft
CPT/HCPCS: 93005; 87070; 85025; 80048; 36415; 87205; 81025; 82962 ×2; 88304; 87075; 87077; 87186; 71046; 10061; J2704; J2250; J3010; J7030; J2405